=== PATIENT | female | born 1970 | race Caucasian/White ===

== ENCOUNTER 2016-09-22 10:36 | Outpatient (CLI) | payer BC ==
[~2016-09-22] VITALS: Ht 170.2 cm; Wt 116.2 kg
[~2016-09-22 10:36] MED LIST: AMLO5TAB2 PO; CYAN10006 PO; DULO60CA58 PO; GABA600T2 PO; GABA800T PO; HYDR-34 PO; HYDR-3714 PO; HYDR-3874 PO; LEVO500T2 PO; LEVO500T80 PO; LEVO50TA PO; LEVO50TA6 PO; LISI1TAB PO; LISI1TAB8 PO; LISI40TA PO; LVT.05T PO; MEDR150D4 INJ; MEDR150D6 INJ; METH750T3 PO; MULT1TAB69 PO; NAPR220C11 PO; NITR-68 PO; OXYC-197 PO; OXYC-272 PO; OXYC20TA14 PO; PANT40TA2 PO; POTA15TA PO; TAMS0.4C98 PO
--- OUTSIDE RECORDS SUMMARY | 2016-09-22 10:39 | XMS REPORT | Continuity of Care Document ---
Author Author [facility] Organization [facility] Address Unknown Phone Unavailable Care Team Providers Care Flag Car Driver Name Role Phone Juana Collier PCP [phone] Source Comments Some departments are not documenting in the electronic medical record. If you do not see the information that you expected, contact Release of Information in the Health Information Management department at [phone] for further assistance in locating additional records.[facility] Active Allergies and Adverse Reactions Not on File Current Medications Not on file Active Problems Not on file Social History Tobacco Use Types Packs/Day Years Used Date Never Assessed Plan of Care Health Maintenance Due Date Last Done Comments Physical (Comprehensive) 02/26/1979 Exam Pertussis Vaccine 02/26/1983 Tetanus Vaccine 02/26/1989 Cervical Cancer Screening 02/26/1993 Influenza Vaccine 03/23/2016 Results from Last 3 Months Not on file
[2016-09-22] MEDS ORDERED: BUPIVACAINE 0.25% 30 ML (SENSORCAINE) VIAL ONE (10:44)
[2016-09-22] MEDS ORDERED: TRIAMCINOLONE ACET (KENALOG-40) 40 MG/ML 1 ML VIAL ONE (10:44)
[2016-09-22 11:05] VITALS: BP 126/88
[2016-09-22 11:48] VITALS: BP 134/81
--- NOTE | 2016-09-22 14:53 | Pain Medicine-Procedure ---
Procedure Pre-Op/Post-Op Diagnosis Diagnosis: disc disorder with radiculopathy, lumbar Indications for Operation low back pain Attending Surgeon Harry Procedure Date of Service: Sep 22, 2016 PROCEDURE: Caudal Epidural Steroid Injection with catheter under Flouroscopic Guidance PROCEDURE NOTE: After obtaining written informed consent patient was taken to the procedure room. Vital signs were monitored through out the procedure. A time out was performed. The patient was placed in the prone position on fluoroscopy table. The lower back above the caudal space was prepped with chloraprep and draped in the usual sterile fashion. The skin over the sacral hiatus was identified under fluoroscopic guidance and infiltrated with 1% lidocaine for local anesthesia via 25 gauge needle. An 17-gauge epimed needle was used to access the epidural space under fluoroscopic guidance and was then advanced into the epidural space under fluoroscopic guidance in the AP view. The epimed catheter was then advanced under flourospopic guidance to the L5-S1 interspace. There was no paresthesia with catheter placement. After negative aspiration 1 cc of the contrast dye was injected through the needle with good spread of the medication in the epidural space at the appropriate levels. Again, after negative aspiration, 80 mg of kenalog with 2 cc of 0.25% marcaine and 2 mL's of preservative free normal saline was injected. There was no evidence of CSF, paresthesia or heme during the procedure. The catheter and needle were withdrawn as a unit and the tip was noted to be intact upon removal. Skin was cleaned and a sterile dressing was applied. Following the procedure the patient's vital signs were stable. The patient was discharged home after a brief period of observation with no new neuologic deficits. Complications none MILO BATISTA MD Sep 22, 2016 2:53 pm
== END 2016-09-22 11:49 | disposition home or self-care (01) ==
LOC: CARD 10:36
PROVIDERS: ATTEND Pain Medicine Pain Medicine
DX: M51.16 Intervertebral disc disorders with radiculopathy, lumbar region (principal); Z79.899 Other long term (current) drug therapy
CPT/HCPCS: 62323

== ENCOUNTER → 2016-10-04 | Outpatient (CLI) | payer BC ==
--- OUTSIDE RECORDS SUMMARY | 2016-10-04 15:40 | XMS REPORT | Continuity of Care Document ---
Author Author [facility] Organization [facility] Address Unknown Phone Unavailable Care Team Providers Care Plastic Fabricator Name Role Phone Juana Collier PCP [phone] Source Comments Some departments are not documenting in the electronic medical record. If you do not see the information that you expected, contact Release of Information in the Health Information Management department at [phone] for further assistance in locating additional records.[facility] Active Allergies and Adverse Reactions [...]
--- NOTE | 2016-10-04 18:04 | Diagnostic Imaging Report ---
AP and frog-leg lateral views of the left hip. INDICATION: Chronic left hip pain. FINDINGS: There is no significant joint space loss. Very minimal subchondral sclerotic changes are seen. No significant marginal osteophytes. No fracture or dislocation. No focal osseous lesion seen. Partially visualized fusion hardware involving the lower lumbar spine seen. IMPRESSION: Minimal left hip degenerative changes. Dictated by: Dictated on workstation # [id number]
== END ==
LOC: RAD 15:37
PROVIDERS: ATTEND Pain Medicine Pain Medicine
DX: M25.552 Pain in left hip (principal)
CPT/HCPCS: 73502

== ENCOUNTER → 2017-03-07 | Outpatient (CLI) | payer BC ==
--- NOTE | 2017-03-07 16:47 | Diagnostic Imaging Report ---
EXAMINATION: PA and lateral chest at 04:18 p.m. INDICATION: Respiratory distress. FINDINGS: The heart size is within normal limits and stable when compared to 05/21/2015. The perihilar markings are prominent but no different than on the prior exam. There is no sign of failure, pneumonia, or pleural effusion to suggest an acute abnormality. On the PA view, there is a small nodular density overlying the left upper lung. This was present on the prior exam of 05/21/2015 but not evident on the prior exam of 05/19/2015. This finding does seem similar to the prior exam. Consequently, I suspect it is more likely due to superimposition than to a parenchymal abnormality. Even so, I would recommend that an apical lordotic view be performed for further study. The mediastinum is not widened. The osseous structures are intact. IMPRESSION: 1. There is no evidence for an acute cardiopulmonary abnormality. 2. The small nodular density overlying the left upper lung is more likely due to superimposition than to a parenchymal abnormality. Recommendations as above. Dictated by: Dictated on workstation # [id number]
== END ==
LOC: RAD 15:54
PROVIDERS: ATTEND Family Medicine
DX: R05 Cough (principal)
CPT/HCPCS: 71020

== ENCOUNTER → 2017-03-14 | Outpatient (CLI) | payer BC ==
--- NOTE | 2017-03-14 17:03 | Diagnostic Imaging Report ---
INDICATION: Cough. Apical lordotic view of the chest obtained and compared to 03/07/17. FINDINGS: Heart and mediastinal silhouette are normal in appearance. The lungs are clear. Density overlying the left apex on the previous study is resolved on the lordotic projection, this is probably a bony artifact therefore. IMPRESSION: Negative apical lordotic chest. Dictated by: Dictated on workstation # [id number]
== END ==
LOC: RAD 15:56
PROVIDERS: ATTEND Family Medicine
DX: R05 Cough (principal)
CPT/HCPCS: 71010

== ENCOUNTER → 2017-03-14 | Outpatient (CLI) | payer BC | LOC: LAB 15:51 | PROVIDERS: ATTEND Psychiatry & Neurology Neurology | DX: R25.2 Cramp and spasm (principal) | CPT/HCPCS: 36415 ==

== ENCOUNTER → 2017-03-21 | Outpatient (CLI) | payer BC ==
[2017-03-09 07:20] LABS: BASOPHILS % (AUTO) 0 % (0-10); EOSINOPHILS # (AUTO) 0.2 10^3/uL (0.0-0.3); EOSINOPHILS % (AUTO) 2 % (0-10); LYMPHOCYTES # (AUTO) 2.1 X 10^3 (1.0-4.0); LYMPHOCYTES % (AUTO) 26 % (12-44); MEAN CORPUSCULAR HEMOGLOBIN 30 PG (25-34); MEAN CORPUSCULAR HGB CONC 32 G/DL (32-36); MEAN CORPUSCULAR VOLUME 94 FL (80-99); MEAN PLATELET VOLUME 9.6 FL (7.4-10.4); MONOCYTES # (AUTO) 0.6 X 10^3 (0.0-1.0); MONOCYTES % (AUTO) 7 % (0-12); NEUTROPHILS # (AUTO) 5.2 X 10^3 (1.8-7.8); NEUTROPHILS % (AUTO) 64 % (42-75); PLATELET COUNT 241 10^3/uL (130-400)
[2017-03-09 07:42] LABS: ALANINE AMINOTRANSFERASE 68 U/L (0-55); ALBUMIN 4.3 GM/DL (3.2-4.5); ANION GAP 13 MMOL/L (5-14); ASPARTATE AMINO TRANSFERASE 85 U/L (5-34); BILIRUBIN,TOTAL 0.5 MG/DL (0.1-1.0); BLOOD UREA NITROGEN 15 MG/DL (7-18); BUN/CREATININE RATIO 22; CALCIUM 9.6 MG/DL (8.5-10.1); CARBON DIOXIDE 20 MMOL/L (21-32); CHLORIDE 105 MMOL/L (98-107); CREATINE KINASE 274 U/L (29-168); CREATININE SERUM 0.69 MG/DL (0.60-1.30); GFR ESTIMATED > 60; GLUCOSE 141 MG/DL (70-105); POTASSIUM 4.2 MMOL/L (3.6-5.0); SODIUM 138 MMOL/L (135-145); TOTAL PROTEIN 7.5 GM/DL (6.4-8.2)
[2017-03-09 08:05] LABS: THYROID STIMULATING HORMONE 1.55 UIU/ML (0.35-4.94)
== END ==
LOC: LAB 03-09 06:39
PROVIDERS: ATTEND Psychiatry & Neurology Neurology
DX: R25.2 Cramp and spasm (principal)
CPT/HCPCS: 36415; 80053; 82085; 82306; 82550; 82607; 83605; 84439; 84443; 85025

== ENCOUNTER → 2017-06-25 | Outpatient (CLI) | payer BC ==
--- NOTE | 2017-06-26 10:30 | Diagnostic Imaging Report ---
Bilateral screening mammogram 2D views with tomosynthesis The current study was also evaluated with a Computer Aided Detection (CAD) system. Indication: Screening. No current complaints stated on the questionnaire. COMPARISON: 06/09/2016 FINDINGS: The breasts are composed of scattered fibroglandular densities. Occasional benign-appearing calcifications are seen. Allowing for technique and positional differences, no suspicious change is seen. IMPRESSION: No significant change. ACR BI-RADS Category 2: Benign findings. Result letter will be mailed to the patient. Note: At least 10% of breast cancer is not imaged by mammography. Dictated by: Dictated on workstation # [id number]
== END ==
LOC: RAD 15:05
PROVIDERS: ATTEND Obstetrics & Gynecology
DX: Z12.31 Encounter for screening mammogram for malignant neoplasm of breast (principal)
CPT/HCPCS: 77067

== ENCOUNTER → 2019-06-05 | Outpatient (CLI) | payer BC ==
[~2019-06-05] MED LIST changes: -AMLO5TAB2 PO; +AMLO5TAB9 PO; +CYAN-41 PO; -CYAN10006 PO; +GBPN600T PO; +HYDR-3870 PO; -HYDR-3874 PO; -OXYC-197 PO; +OXYC1TAB87 PO
--- NOTE | 2019-06-05 09:50 | Diagnostic Imaging Report ---
PROCEDURE: MRI right joint upper extremity without contrast. TECHNIQUE: Multiplanar, multisequence non contrast-enhanced MRI of the right upper extremity was accomplished. INDICATION: Arm pain, ulnar nerve lesion. COMPARISON: There are no prior studies available for comparison. FINDINGS: The STIR coronal series and the T2 axial fat-saturated series do show increased signal in the soft tissues adjacent to the medial epicondyle of the distal humerus. This abnormal signal does suggest edema/inflammation. This abnormal signal is in the region of the attachment of the common flexor tendon to the medial epicondyle and there may be slight separation of the common flexor tendon fibers from the bone in this region (coronal STIR series image 8 of 21, axial T2 fat-saturated series image 12 of 21). The area of abnormal signal is also along the path of the ulnar nerve. The ulnar nerve itself was visualized and shows no obvious abnormality. However, there may be inflammation of the ulnar nerve due to the adjacent soft tissue reaction. The other major ligaments and tendons of the elbow joint are intact. The insertion of the biceps tendon into the radial tuberosity however is not visualized in its entirety. There is no abnormal signal arising from the osseous structures to suggest bone edema or fracture. There is no sign of joint effusion. IMPRESSION: 1. There is edema/inflammation of the soft tissues about the medial epicondyle of the distal humerus. There also appears to be a slight separation of the common flexor tendon from the medial epicondyle. The ulnar nerve is in the region of the edema/inflammation and may be indirectly affected. The nerve itself where visualized shows no definite abnormality. 2. The other major ligaments and tendons are intact. 3. There is no sign of an acute bony abnormality. Dictated by: Dictated on workstation # [id number]
== END ==
LOC: RAD 07:39
PROVIDERS: ATTEND Nurse Practitioner
DX: G56.21 Lesion of ulnar nerve, right upper limb (principal); M77.12 Lateral epicondylitis, left elbow
CPT/HCPCS: 73221

== ENCOUNTER → 2019-06-16 | Outpatient (CLI) | payer BC ==
--- NOTE | 2019-06-17 10:01 | Diagnostic Imaging Report ---
Digital mammogram. Bilateral screening. The study was compared to the prior exams of 06/25/2017 and 05/30/2016. At this time there are no current complaints. The fibroglandular tissue in both breasts is heterogeneously dense. This does limit the sensitivity of this exam. When compared to the prior studies, there does not appear to have been any significant change. There is no primary or secondary sign of malignancy noted. However on the MLO views of each breast, there are small radiopaque densities overlying each axilla. This is particularly true of the right axilla. I suspect that these findings are related to deodorant artifact. The patient did return for additional MLO views. These are of better quality. IMPRESSION: There is no evidence for malignancy. ACR BI-RADS Category 1: Negative. Result letter will be mailed to the patient. Note: At least 10% of breast cancer is not imaged by mammography. Dictated by: Dictated on workstation # [id number]
== END ==
LOC: RAD 08:13
PROVIDERS: ATTEND Obstetrics & Gynecology
DX: Z12.31 Encounter for screening mammogram for malignant neoplasm of breast (principal)
CPT/HCPCS: 77067

== ENCOUNTER → 2020-01-28 | Outpatient (CLI) | payer BC ==
[~2020-01-28] MED LIST changes: +LISI1TAB25 PO; +MULT-567 PO; -MULT1TAB69 PO; -TAMS0.4C98 PO; +TMSL.4C PO
== END ==
LOC: LABNPT 07:04
PROVIDERS: ATTEND Family Medicine
DX: M79.10 Myalgia, unspecified site (principal); R51 Headache; R05 Cough; Z20.828 Contact with and (suspected) exposure to other viral communicable diseases
CPT/HCPCS: 87635

== ENCOUNTER → 2020-07-22 | Outpatient (CLI) | payer BC ==
[~2020-07-22] MED LIST changes: +ACET-2267 PO; +ALBU18HF2 INH; +AMLO-250 PO; +AMLO2.5T4 PO; -AMLO5TAB9 PO; +ARIP5TAB57 PO; +AZIT250T12 PO; +BUPR150T7 PO; +DAPA5TAB PO; +ESTR2TAB PO; +GABA300C PO; -LISI1TAB25 PO; +LISI1TAB46 PO; +METF-399 PO; +METH4TAB10 PO
--- NOTE | 2020-07-22 17:28 | NUR ---
Notified of positive COVID test.
== END ==
LOC: LABNPT 05:15
PROVIDERS: ATTEND Family Medicine
DX: U07.1 COVID-19 (principal)
CPT/HCPCS: 87804; U0002; 87635

== ENCOUNTER 2020-07-23 23:55 | Inpatient (IN) | payer BC ==
[~2020-07-23] VITALS: Ht 167.7 cm; Wt 109.5 kg
[~2020-07-23 23:55] MED LIST changes: -ACET-2267 PO; -ALBU18HF2 INH; -AMLO2.5T4 PO; -ARIP5TAB57 PO; -AZIT250T12 PO; -BUPR150T7 PO; -DAPA5TAB PO; -ESTR2TAB PO; -GABA300C PO; -METF-399 PO; -METH4TAB10 PO
[2020-07-24] MEDS: dexAMETHasone 6 MG TAB (DECADRON) ONE ×2 (00:18→00:30)
[2020-07-24] MEDS: LACTATED RINGERS 1,000 ML IV ONE ×2 (00:18→00:41)
[2020-07-24] MEDS: RT-ALBUTEROL INHALER HFA (VENTOLIN HFA) 18 GM IH ONE ×2 (00:30→00:41)
[2020-07-24] MEDS ORDERED: RT-ALBUTEROL INHALER HFA (VENTOLIN HFA) 18 GM IH PRN (00:30)
[2020-07-24] MEDS ORDERED: RT-ALBUTEROL INHALER HFA (VENTOLIN HFA) 18 GM IH STA (00:33)
[2020-07-24] MEDS ORDERED: LACTATED RINGERS 1,000 ML IV STA (00:33)
[2020-07-24 00:41] LABS: MEAN PLATELET VOLUME 11.1 fL (9.0-12.2); NEUTROPHILS # (AUTO) 5.8 10^3/uL (1.8-7.8)
[2020-07-24 00:43] LABS: BASOPHILS % (AUTO) 0 % (0-10); EOSINOPHILS % (AUTO) 0 % (0-10); HEMATOCRIT 39 % (35-52); HEMOGLOBIN 12.1 g/dL (11.5-16.0); LYMPHOCYTES % (AUTO) 14 % (12-44); MEAN CORPUSCULAR HEMOGLOBIN 26 pg (25-34); MEAN CORPUSCULAR HGB CONC 31 g/dL (32-36); MEAN CORPUSCULAR VOLUME 84 fL (80-99); MONOCYTES # (AUTO) 0.4 10^3/uL (0.0-1.0); MONOCYTES % (AUTO) 6 % (0-12); NEUTROPHILS % (AUTO) 79 % (42-75); PLATELET COUNT 82 10^3/uL (130-400); WHITE BLOOD COUNT 7.3 10^3/uL (4.3-11.0)
[2020-07-24] MEDS ORDERED: dexAMETHasone 6 MG TAB (DECADRON) PO SCH (00:45)
[2020-07-24] MEDS ORDERED: LACTATED RINGERS 1,000 ML IV ONE ×2 (01:00→03:14)
--- NOTE | 2020-07-24 01:13 | ED General ---
General Chief Complaint: Respiratory Problems Stated Complaint: COVID+,COUGH,SOB,LOW O2 Nursing Triage Note: TESTED POSITIVE FOR COVID 19 YESTERDAY 07/22/20, TONIGHT SHE C/O INCREASED SHORTNESS OF BREATH WITH INTERMITTENT CHEST DISCOMFORT. Nursing Sepsis Screen: Possible Sepsis Risk Source of Information: Patient Exam Limitations: No Limitations History of Present Illness Date Seen by Provider: Jul 24, 2020 Time Seen by Provider: 00:08 Initial Comments Here with complaint of shortness of breath and chest tightness. Tested positive for COVID-19 on 07/22/2020 here in the emergency department. Her daughter is also positive. She believes onset of symptoms was on 07/16/2020. Does have history of diabetes and hypertension that are both usually controlled. Also has hypothyroidism. She has been doing albuterol inhaler at home and that has helped only a little. Her primary care physician started her on steroids and azithromycin but unsure of dosing of steroids. Last dose was what would be yesterday morning. Denies nausea or vomiting. Admits that she may be a little dehydrated. Reports blood sugars in the 140s or 150s. Arrives tachycardic and O2 sat at 88% on room air. Timing/Duration: 1 Week, Getting Worse Severity: Moderate Associated Systoms: Chest Pain (Tightness), Cough, Fever/Chills; No Nausea/Vomiting; Shortness of Air; No Weakness Allergies and Home Medications Allergies Coded Allergies: codeine (Verified Adverse Reaction, Unknown, NAUSEA & VOMITING., 05/11/16) Home Medications Amlodipine Besylate 5 Mg Tablet, 5 MG PO HS, (Reported) Gabapentin 600 Mg Tablet, 600 MG PO BID, (Reported) Hydrocodone/Acetaminophen 1 Each Tablet, 1-2 TAB PO Q4H PRN for PAIN Prescribed by: BRITT RAMOS on 05/16/16 1058 Levothyroxine Sodium 50 Mcg Tablet, 50 MCG PO DAILY, (Reported) Lisinopril 40 Mg Tablet, 40 MG PO DAILY, (Reported) Medroxyprogesterone Acetate 150 Mg/1 Ml Syringe, INJ EVERY 3 MONTHS, (Reported) Nitrofurantoin Macrocrystal 100 Mg Capsule, 100 MG PO BID Prescribed by: BRITT RAMOS on 05/16/16 1058 Pantoprazole Sodium 40 Mg Tablet.dr, 40 MG PO DAILY Prescribed by: MERISSA VILLAGOMEZ on 07/05/15 1309 Potassium Citrate 15 Meq Tablet.er, 15 MEQ PO BID, (Reported) Tamsulosin HCl 0.4 Mg Cap, 0.4 MG PO DAILY Prescribed by: BRITT RAMOS on 05/16/16 1058 Patient Home Medication List Home Medication List Reviewed: Yes Review of Systems Review of Systems Constitutional: see HPI EENTM: nose congestion; No throat pain Respiratory: cough, short of breath Cardiovascular: see HPI; No edema Gastrointestinal: No nausea, No vomiting Genitourinary: No dysuria, No pain Musculoskeletal: muscle pain; No muscle weakness Skin: no symptoms reported All Other Systems Reviewed Negative Unless Noted: Yes Past Wqthcxn-Spvfzz-Akzckb Hx Past Med/Social Hx: Reviewed Nursing Past Med/Soc Hx Patient Social History Alcohol Use: Denies Use Recreational Drug Use: No Recent Foreign Travel: No Contact w/Someone Who Travel: No Recent Hopitalizations: No Physical Abuse: No Sexual Abuse: No Mistreated: No Fear: No Immunizations Up To Date Tetanus Booster (TDap): More than 5yrs PED Vaccines UTD: Yes Date of Pneumonia Vaccine: May 06, 2015 Date of Influenza Vaccine: May 05, 2015 Seasonal Allergies Seasonal Allergies: No Past Medical History Surgeries: Yes (rectal vag FISTULA x3, bilateral knee scopes, carpal tunnel, back sx x2, ) Section, Gallbladder, Orthopedic, Rectal Respiratory: No Pneumonia Currently Using CPAP: No Currently Using BIPAP: No Cardiac: Yes Hypertension Neurological: No : No (DEPO SHOT) Reproductive Disorders: No Sexually Transmitted Disease: No HIV/AIDS: No Kidney Stones Gastrointestinal: Yes (RECTAL-VAGINAL FISTULA REPAIR X3) Gastroesophageal Reflux Musculoskeletal: Yes Degenerate Disk Disease, Chronic Back Pain Endocrine: Yes Hypothyroidsim, Diabetes, Non-Insulin dep HEENT: No Loss of Vision: Denies Hearing Impairment: Denies Cancer: No Psychosocial: No Integumentary: No Blood Disorders: No Adverse Reaction/Blood Tranf: No (N/A) Family Medical History Reviewed Nursing Family Hx Diabetes mellitus 19 FATHER (COPD) G8 BROTHER Myocardial infarction G8 SISTER, Onset:40's - 50 No Pertinent Family Hx Physical Exam-Suspected Sepsis Physical Exam Vital Signs Vital Signs - First Documented 07/24/20 07/24/20 00:10 00:11 Temp 36.4 Pulse 119 Resp 22 B/P (MAP) 173/88 (116) Pulse Ox 93 O2 Delivery Nasal Cannula O2 Flow Rate 2.00 Capillary Refill : Less Than 3 Seconds Blood Pressure Mean: 116 Height, Weight, BMI Height: 5'7.00" Weight: 256lbs. 4.0oz. [id number]; 40.00 BMI Method: General Appearance: WD/WN, Moderate Distress, Obese HEENT: PERRL/EOMI, Pharyngeal Erythema Neck: Non Tender, Supple Respiratory: No Accessory Muscle Use, Other (Coarse cough with deep breathing) Cardiovascular: No Murmur, Tachycardia Gastrointestinal: Non Tender, Soft Back: Normal Inspection, No CVA Tenderness, No Vertebral Tenderness Extremity: Normal Range of Motion, Non Tender Neurologic/Psychiatric: Alert, Oriented x3 Skin: normal color, warm/dry Focused Exam Lactate Level 07/24/20 00:30: Lactic Acid Level 3.76*H Lactic Acid Level Laboratory Tests Test 07/24/20 00:30 Lactic Acid Level 3.76 MMOL/L (0.50-2.00) *H Progress/Results/Core Measures Suspected Sepsis Recent Fever Within 48 Hours: Yes Infection Criteria Present: Documented Infection New/Unexplained Altered Menta: No Sepsis Screen: Possible Sepsis Risk SIRS Temperature: Pulse: 119 Respiratory Rate: 22 Laboratory Tests 07/24/20 00:30: White Blood Count 7.3 Blood Pressure 173 /88 Mean: 116 07/24/20 00:30: Lactic Acid Level 3.76*H Laboratory Tests 07/24/20 00:30: Platelet Count 82L 07/24/20 01:00: Creatinine 0.76, INR Comment 1.1, Total Bilirubin 0.4 Results/Orders Lab Results Laboratory Tests Test 07/24/20 00:30 07/24/20 01:00 07/24/20 01:35 Range/Units White Blood Count 7.3 4.3-11.0 10^3/uL Red Blood Count 4.68 3.80-5.11 10^6/uL Hemoglobin 12.1 11.5-16.0 g/dL Hematocrit 39 35-52 % Mean Corpuscular Volume 84 80-99 fL Mean Corpuscular Hemoglobin 26 25-34 pg Mean Corpuscular Hemoglobin Concent 31 L 32-36 g/dL Red Cell Distribution Width 16.0 H 10.0-14.5 % Platelet Count 82 L 130-400 10^3/uL Mean Platelet Volume 11.1 9.0-12.2 fL Immature Granulocyte % (Auto) 1 % Neutrophils (%) (Auto) 79 H 42-75 % Lymphocytes (%) (Auto) 14 12-44 % Monocytes (%) (Auto) 6 0-12 % Eosinophils (%) (Auto) 0 0-10 % Basophils (%) (Auto) 0 0-10 % Neutrophils # (Auto) 5.8 1.8-7.8 10^3/uL Lymphocytes # (Auto) 1.0 1.0-4.0 10^3/uL Monocytes # (Auto) 0.4 0.0-1.0 10^3/uL Eosinophils # (Auto) 0.0 0.0-0.3 10^3/uL Basophils # (Auto) 0.0 0.0-0.1 10^3/uL Immature Granulocyte # (Auto) 0.1 0.0-0.1 10^3/uL Lactic Acid Level 3.76 *H 0.50-2.00 MMOL/L Prothrombin Time 14.8 H 12.2-14.7 SEC INR Comment 1.1 0.8-1.4 Activated Partial Thromboplast Time 34 24-35 SEC D-Dimer 0.21 0.00-0.49 UG/ML Sodium Level 135 135-145 MMOL/L Potassium Level 4.1 3.6-5.0 MMOL/L Chloride Level 103 98-107 MMOL/L Carbon Dioxide Level 16 L 21-32 MMOL/L Anion Gap 16 H 5-14 MMOL/L Blood Urea Nitrogen 11 7-18 MG/DL Creatinine 0.76 0.60-1.30 MG/DL Estimat Glomerular Filtration Rate > 60 BUN/Creatinine Ratio 14 Glucose Level 159 H 70-105 MG/DL Calcium Level 9.3 8.5-10.1 MG/DL Corrected Calcium 9.2 8.5-10.1 MG/DL Total Bilirubin 0.4 0.1-1.0 MG/DL Aspartate Amino Transf (AST/SGOT) 39 H 5-34 U/L Alanine Aminotransferase (ALT/SGPT) 42 0-55 U/L Alkaline Phosphatase 69 40-136 U/L C-Reactive Protein High Sensitivity 2.21 H 0.00-0.50 MG/DL Total Protein 7.7 6.4-8.2 GM/DL Albumin 4.1 3.2-4.5 GM/DL Procalcitonin 0.06 <0.10 NG/ML Urine Color YELLOW Urine Clarity CLEAR Urine pH 6.0 5-9 Urine Specific [place] >=1.030 1.016-1.022 Urine Protein 2+ H NEGATIVE Urine Glucose (UA) 2+ H NEGATIVE Urine Ketones 1+ H NEGATIVE Urine Nitrite NEGATIVE NEGATIVE Urine Bilirubin NEGATIVE NEGATIVE Urine Urobilinogen 0.2 < = 1.0 MG/DL Urine Leukocyte Esterase NEGATIVE NEGATIVE Urine RBC (Auto) TRACE-I NEGATIVE Urine RBC 10-25 H /HPF Urine WBC 5-10 H /HPF Urine Squamous Epithelial Cells 5-10 /HPF Urine Crystals NONE /LPF Urine Bacteria LARGE H /HPF Urine Casts NONE /LPF Urine Mucus NEGATIVE /LPF Urine Culture Indicated CULTURE PENDING My Orders Orders - SRINIVASA RANGEL MD Lactated Ringers (Lr 1000 Ml Iv Solution (07/24/20 00:13) Dexamethasone Tablet (Decadron Tablet) (07/24/20 00:13) Albuterol Inhaler (Ventolin Hfa) (07/24/20 00:25) Cbc With Automated Diff (07/24/20 00:33) Comprehensive Metabolic Panel (07/24/20 00:33) Blood Culture (07/24/20 00:33) Sputum Culture (07/24/20 00:33) Urinalysis (07/24/20 00:33) Urine Culture (07/24/20 00:33) Protime With Inr (07/24/20 00:33) Partial Thromboplastin Time (07/24/20 00:33) Chest 1 View, Ap/Pa Only (07/24/20 00:33) Ed Iv/Invasive Line Start (07/24/20 00:33) Vital Signs Adult Sepsis Patie Q15M (07/24/20 00:33) O2 (07/24/20 00:33) Remove Rings In Anticipation O (07/24/20 00:33) Lactic Acid Analyzer (07/24/20 00:33) Fibrin Degradation Products (07/24/20 00:33) Procalcitonin (Pct) (07/24/20 00:33) Hs C Reactive Protein (07/24/20 00:33) Dexamethasone Tablet (Decadron Tablet) (07/24/20 00:45) Albuterol Inhaler (Ventolin Hfa) (07/24/20 00:33) Lactated Ringers (Lr 1000 Ml Iv Solution (07/24/20 00:33) Lactated Ringers (Lr 1000 Ml Iv Solution (07/24/20 01:00) Convalescent Plasma (07/24/20 02:08) Abo Rh Type (07/24/20 02:08) Medications Given in ED Current Medications Medications Dose Ordered Sig/Vickie Route Start Time Stop Time Status Last Admin Dose Admin Lactated Ringer's 1,000 ml @ 0 mls/hr Q0M ONCE IV 07/24/20 01:00 07/24/20 01:01 DC 07/24/20 01:27 1,000 MLS/HR Vital Signs/I&O 07/24/20 07/24/20 00:10 00:11 Temp 36.4 Pulse 119 Resp 22 B/P (MAP) 173/88 (116) Pulse Ox 93 93 O2 Delivery Nasal Cannula Nasal Cannula O2 Flow Rate 2.00 Capillary Refill : Less Than 3 Seconds Blood Pressure Mean: 116 Progress Note : Progress Note Seen and evaluated. IV, labs, blood cultures and lactic acid ordered. Decadron 6 mg p.o. LR 1 L bolus. Albuterol MDI 4 puffs via spacer ordered. O2 applied at 2 L with O2 sat at 95%. Monitor patient. 0100: Repeat LR 1 L bolus for la ctic acid elevation but less than 4. Patient has active Covid infection. Monitor patient. 0211: X-ray is notable for bilateral lateral pneumonia findings consistent with COVID-19 infection. Procalcitonin is low indicating viral infection not bacterial. We will continue supportive care. I did discuss with the patient regarding convalescent plasma and emergency use authorization. Risk and benefits discussed patient agrees to administration. I did discuss the case with Dr. Dewitt and she accepts patient for admission, inpatient status. We will continue Decadron. Patient agrees with plan. Diagnostic Imaging Diagonstic Imaging: Xray Plain Films/CT/US/NM/MRI: chest Comments Bilateral lateral infiltrates consistent with COVID-19 infection. Departure Communication (Admissions) Time/Spoke to Admitting Phy: 02:11 Impression Primary Impression: Pneumonia due to COVID-19 virus Additional Impression: Lactic acidosis Disposition: 09 ADMITTED INPATIENT Condition: Stable Admissions Decision to Admit Reason: Admit from ER (General) Decision to Admit/Date: Jul 24, 2020 Time/Decision to Admit Time: 02:11 Departure-Patient Inst. Referrals: ALY LYLE DO (PCP/Family) Primary Care Physician SRINIVASA RANGEL MD Jul 24, 2020 01:12
[2020-07-24 01:27] LABS: ALBUMIN 4.1 GM/DL (3.2-4.5); CHLORIDE 103 MMOL/L (98-107); POTASSIUM 4.1 MMOL/L (3.6-5.0); SODIUM 135 MMOL/L (135-145)
[2020-07-24 01:28] LABS: CALCIUM 9.3 MG/DL (8.5-10.1)
[2020-07-24 01:29] LABS: GLUCOSE 159 MG/DL (70-105)
[2020-07-24 01:30] LABS: TOTAL PROTEIN 7.7 GM/DL (6.4-8.2)
[2020-07-24 01:31] LABS: BILIRUBIN,TOTAL 0.4 MG/DL (0.1-1.0); CARBON DIOXIDE 16 MMOL/L (21-32)
[2020-07-24 01:33] LABS: ALKALINE PHOSPHATASE 69 U/L (40-136); CREATININE SERUM 0.76 MG/DL (0.60-1.30); GFR ESTIMATED > 60
[2020-07-24 01:34] LABS: BUN/CREATININE RATIO 14
[2020-07-24 01:36] LABS: ALANINE AMINOTRANSFERASE 42 U/L (0-55)
[2020-07-24 01:59] LABS: BILIRUBIN,URINE NEGATIVE (NEGATIVE); CLARITY,URINE CLEAR; COLOR,URINE YELLOW; GLUCOSE, URINE (UA) 2+ (NEGATIVE); KETONES,URINE 1+ (NEGATIVE); LEUKOCYTE ESTERASE ,URINE NEGATIVE (NEGATIVE); NITRITE,URINE NEGATIVE (NEGATIVE); PROTEIN,URINE 2+ (NEGATIVE)
[2020-07-24 02:02] LABS: FIBRIN DEGRADATION PRODUCTS 0.21 UG/ML (0.00-0.49); INR 1.1 (0.8-1.4); PROTHROMBIN TIME PATIENT 14.8 SEC (12.2-14.7)
[2020-07-24 02:03] LABS: BACTERIA,URINE LARGE /HPF
--- NOTE | 2020-07-24 03:25 | NUR ---
AMINATA PETERSERIK admitted to room 507-1, with an admitting diagnosis of COVID +, PNEUMONIA , on 07/24/20 from ED via WHEELCHAIR, accompanied by HOSPITAL STAFF. AMINATA HINDS introduced to surroundings, call light, bed controls, phone, TV, temperature control, lights, meal times, smoking policy, visitor policy, side rail policy, bathrooms and showers. Patient Rights given to patient in the handbook.AMINATA HINDS verbalizes understanding that [facility] is not responsible for the loss or damage to any personal effects or valuables that are kept in the patients posession during their hospitalization. AMINATA HINDS verbalizes understanding of Interdisciplinary Patient Education. Patient and/or family were informed about the Rapid Response Team and its purpose.
[2020-07-24] MEDS ORDERED: ONDANSETRON 4 MG/2 ML (SDV) Z0FRAN IVP PRN (03:30)
[2020-07-24 03:54] VITALS: BP 173/88
[2020-07-24] MEDS: LACTATED RINGERS 1,000 ML IV SCH ×3 (04:14→19:55)
[2020-07-24] MEDS: dexAMETHasone 6 MG TAB (DECADRON) PO SCH (06:11)
[2020-07-24] MEDS: inSUlin ASPART (NovoLOG) 1 UNIT/0.01 ML (CHARGE PER UNIT) SC SCH ×4 (06:19→21:17)
[2020-07-24] MEDS ORDERED: FLU QUADRIvalent (3YOA+) 60 mcg/0.5 ml 2020-21 (AFLURIA) IM ONE (06:45)
--- NOTE | 2020-07-24 06:56 | Diagnostic Imaging Report ---
INDICATION: COVID positive, shortness of air, cough and congestion, sepsis. TECHNIQUE: Single view chest 1:52 AM. CORRELATION STUDY: 03/14/2017 FINDINGS: Bilateral pulmonary parenchymal opacities have developed most pronounced in the left lung base and right upper lobe in the perihilar region. Heart size generally stable. Vasculature appears slightly more prominent. IMPRESSION: 1. Bilateral pulmonary opacities have developed favoring probable areas of infiltrate. Most pronounced left lung base as well as central right mid lung. 2. Heart size stable with vasculature slightly more prominent from prior. Follow-up is recommended. Dictated by: Dictated on workstation # [id number]
[2020-07-24] MEDS: RT-ALBUTEROL INHALER HFA (VENTOLIN HFA) 18 GM IH SCH ×2 (07:07→18:44)
--- NOTE | 2020-07-24 08:53 | History & Physical-Hospitalist ---
History of Present Illness HPI/Chief Complaint Pt is a 50yoCF with a PMH HTN, NIDDMII, and hypothyroidism who presented to the ER due to SOB. She states she became symptomatic with COVID on 07/16 and her daughter has it as well. She tested positive on 07/22. She was monitoring her oxygen and even at rest it was around 90 and she was short of breath prompting her to seek evaluation. Her stats where in the 80s when she showed up at the ER. She reports she has also had loss of taste and smell. She was started on steroids and azithromycin by her PCP. She denies any nausea, vomiting, or denies. She does complains of fever, myalgias, and fatigue. Source: patient Date Seen 07/24/20 Time Seen by a Provider: 08:53 Attending Physician Niecy Mercer MD PCP Aly Collier DO Referring Physician Date of Admission Jul 24, 2020 at 02:15 Home Medications & Allergies Home Medications Reviewed patient Home Medication Reconciliation performed by pharmacy medication reconciliations weatherization field technician and/or nursing. Patients Allergies have been reviewed. Allergies Allergies Coded Allergies codeine (Verified Adverse Reaction, Unknown, NAUSEA & VOMITING., 05/11/16) Past Pplavxk-Dvjgkt-Cglvxb Hx Past Med/Social Hx: Reviewed Nursing Past Med/Soc Hx Patient Social History Marrital Status: Alcohol Use: Denies Use Recreational Drug Use: No Recent Foreign Travel: No Contact w/other who traveled: No Recent Hopitalizations: No Immunizations Up To Date Tetanus Booster (TDap): More than 5yrs Pediatric: Yes Date of Pneumonia Vaccine: May 06, 2015 Date of Influenza Vaccine: May 05, 2015 Seasonal Allergies Seasonal Allergies: No Past Medical History Surgeries: Section, Gallbladder, Orthopedic, Rectal Currently Using CPAP: No Currently Using BIPAP: No Cardiac: Hypertension : No (DEPO SHOT) Reproductive: No Sexually Transmitted Disease: No HIV/AIDS: No Genitourinary: Kidney Stones Gastrointestinal: Gastroesophageal Reflux Musculoskeletal: Degenerate Disk Disease, Chronic Back Pain Endocrine: Hypothyroidsim, Diabetes, Non-Insulin dep Loss of Vision: Denies Hearing Impairment: Denies History of Blood Disorders: No Adverse Reaction to Blood Rand: No (N/A) Family History Reviewed Nursing Family Hx Diabetes mellitus 19 FATHER (COPD) G8 BROTHER Myocardial infarction G8 SISTER, Onset:40's - 50 No Pertinent Family Hx Review of Systems Constitutional: fever, malaise, weakness EENTM: see HPI Respiratory: cough, dyspnea on exertion, short of breath Cardiovascular: No chest pain, No edema, No palpitations Gastrointestinal: No abdominal pain, No diarrhea, No nausea, No vomiting Genitourinary: no symptoms reported Musculoskeletal: see HPI Skin: no symptoms reported Psychiatric/Neurological: No Symptoms Reported Physical Exam Physical Exam Vital Signs Vital Signs - First Documented 07/24/20 07/24/20 00:10 00:11 Temp 36.4 Pulse 119 Resp 22 B/P (MAP) 173/88 (116) Pulse Ox 93 O2 Delivery Nasal Cannula O2 Flow Rate 2.00 Capillary Refill : Less Than 3 Seconds Height, Weight, BMI Height: 5'7.00" Weight: 256lbs. 4.0oz. 116.393570qm; 39.86 BMI Method: General Appearance: No Apparent Distress, Obese HEENT: PERRL/EOMI, Moist Mucous Membranes Neck: Normal Inspection, Supple Respiratory: Lungs Clear, No Accessory Muscle Use; No Crackles, No Rhonci, No Wheezing; Other (on 3lpm ) Cardiovascular: Regular Rate, Rhythm, No Murmur Gastrointestinal: Normal Bowel Sounds, Non Tender, Soft Extremity: Normal Capillary Refill, No Calf Tenderness, No Pedal Edema Neurologic/Psychiatric: Alert, Oriented x3, Normal Mood/Affect Skin: Normal Color, Warm/Dry Results Results/Procedures Labs Laboratory Tests 07/24/20 00:30 07/24/20 01:00 Patient resulted labs reviewed. Imaging: Reviewed Imaging Report Imaging [facility], [place] NAME: AMINATA [facility]INDS [facility] REC#: [id number] PT STATUS: ADM IN : 1970 PHYSICIAN: SRINIVASA RANGEL MD ADMIT DATE: 07/24/20/[facility] Signed Date of Exam:07/24/20 CHEST 1 VIEW, AP/PA ONLY INDICATION: COVID positive, shortness of air, cough and congestion, sepsis. TECHNIQUE: Single view chest 1:52 AM. CORRELATION STUDY: 03/14/2017 FINDINGS: Bilateral pulmonary parenchymal opacities have developed most pronounced in the left lung base and right upper lobe in the perihilar region. Heart size generally stable. Vasculature appears slightly more prominent. IMPRESSION: 1. Bilateral pulmonary opacities have developed favoring probable areas of infiltrate. Most pronounced left lung base as well as central right mid lung. 2. Heart size stable with vasculature slightly more prominent from prior. Follow-up is recommended. Dictated by: Dictated on workstation # [id number] Dict: [id number]/24/20630 Trans: 07/24/2031 ITA [id number] Interpreted by: GERMAN RUGGIERO DO Electronically signed by: GERMAN RUGGIERO DO 07/24/2031 Assessment/Plan Admission Diagnosis Acute hypoxic respiratory failure due to COVID19 Admission Status: Inpatient Order (span 2 midnights) Reason for Inpatient Admission: see below Assessment and Plan Acute hypoxic respiratory failure due to COVID19 Start remdesivir, continue decadron Consent to convalescent plasma done in ER, awaiting arrival Wean oxygen to keep sats >90 MAT protocol Lovenox IS Lactic acidosis Does not have sepsis Likely multifactorial from tachycardia, hypoxia, and metformin use at home Continue IVF, increase to 100ml/hr Thrombocytopenia New onset INR and D-dimer Will add fibrinogen to complete DIC panel Consider hematology consult if persists HTN BP well controlled, trend Resume home meds when able NIDDMII On metformin at home SSI here Hold metformin for lactic acidosis DVT ppx: Lovenox Diagnosis/Problems Diagnosis/Problems (1) Hypertension Status: Chronic Qualifiers: Hypertension type: essential hypertension Qualified Codes: I10 - Essential (primary) hypertension (2) Non-insulin dependent type 2 diabetes mellitus Status: Chronic (3) Thrombocytopenia Status: Acute (4) Acute respiratory failure Status: Acute Qualifiers: Respiratory failure complication: hypoxia Qualified Codes: J96.01 - Acute respiratory failure with hypoxia (5) Pneumonia due to COVID-19 virus Status: Acute (6) Lactic acidosis Status: Acute Clinical Quality Measures DVT/VTE Risk/Contraindication: Risk Factor Score Per Nursin RFS Level Per Nursing on Admit: 3=High Copy Copies To 1: ALY COLLIER KATELYN M MD Jul 24, 2020 08:53
[2020-07-24] MEDS ORDERED: REMDESIVIR INJ 200 MG in NS (IVPB) 210 ML IV NR (09:00)
[2020-07-24] MEDS: ENOXAPARIN 40 MG/0.4 ML (LOVENOX) SYR SC SCH ×2 (09:00→21:17)
[2020-07-24] MEDS: RT-ALBUTEROL INHALER HFA (VENTOLIN HFA) 18 GM IH PRN (10:15)
[2020-07-24] MEDS ORDERED: ONDANSETRON 4 MG/2 ML (SDV) Z0FRAN IV PRN (11:45)
[2020-07-24] MEDS ORDERED: MILK OF MAGNESIA 400 MG/5 ML 30 ML UDC PO PRN (11:45)
[2020-07-24] MEDS ORDERED: ANTACID SUSP 30 ML UDC (MYLANTA) PO PRN (11:45)
--- NOTE | 2020-07-24 15:10 | NUR ---
Pt transferred to 432 from cardiac step down. Report received from Lauryn Ibarra.
--- NOTE | 2020-07-24 16:06 | NUR ---
Dr Mercer notified of lactic acid critical level of 2.75. Down from 3.31.
[2020-07-24] MEDS: GABAPENTIN 600 MG (NEURONTIN) TAB PO SCH (21:17)
[2020-07-24] MEDS: BENZONATATE 100 MG (TESSALON) CAPSULE PO PRN (23:53)
[2020-07-25] MEDS: RT-ALBUTEROL INHALER HFA (VENTOLIN HFA) 18 GM IH PRN (06:16)
[2020-07-25] MEDS: inSUlin ASPART (NovoLOG) 1 UNIT/0.01 ML (CHARGE PER UNIT) SC SCH ×4 (06:17→20:05)
[2020-07-25] MEDS: ACETAMINOPHEN 325 MG TABLET PO PRN ×2 (06:27→20:05)
[2020-07-25 07:12] LABS: HEMOGLOBIN 10.4 g/dL (11.5-16.0); MEAN PLATELET VOLUME 10.1 fL (9.0-12.2); WHITE BLOOD COUNT 7.4 10^3/uL (4.3-11.0)
[2020-07-25 07:26] LABS: ALBUMIN 3.7 GM/DL (3.2-4.5); CHLORIDE 104 MMOL/L (98-107); POTASSIUM 3.5 MMOL/L (3.6-5.0); SODIUM 136 MMOL/L (135-145)
[2020-07-25 07:27] LABS: CALCIUM 8.5 MG/DL (8.5-10.1)
[2020-07-25 07:28] LABS: GLUCOSE 129 MG/DL (70-105); TOTAL PROTEIN 6.8 GM/DL (6.4-8.2)
[2020-07-25 07:30] LABS: BILIRUBIN,TOTAL 0.4 MG/DL (0.1-1.0); CARBON DIOXIDE 20 MMOL/L (21-32)
[2020-07-25 07:32] LABS: ALKALINE PHOSPHATASE 56 U/L (40-136); CREATININE SERUM 0.63 MG/DL (0.60-1.30); GFR ESTIMATED > 60
[2020-07-25 07:33] LABS: BUN/CREATININE RATIO 17
[2020-07-25 07:35] LABS: ALANINE AMINOTRANSFERASE 31 U/L (0-55)
[2020-07-25] MEDS: RT-ALBUTEROL INHALER HFA (VENTOLIN HFA) 18 GM IH SCH ×2 (07:40→21:29)
--- NOTE | 2020-07-25 08:46 | Progress Note - Hospitalist ---
Subjective HPI/CC On Admission Date Seen by Provider: Jul 25, 2020 Time Seen by Provider: 08:41 Pt is a 50yoCF with a PMH HTN, NIDDMII, and hypothyroidism who presented to the ER due to SOB. She states she became symptomatic with COVID on 07/16 and her daughter has it as well. She tested positive on 07/22. She was monitoring her oxygen and even at rest it was around 90 and she was short of breath prompting her to seek evaluation. Her stats where in the 80s when she showed up at the ER. She reports she has also had loss of taste and smell. She was started on steroids and azithromycin by her PCP. She denies any nausea, vomiting, or denies. She does complains of fever, myalgias, and fatigue. Subjective/Events-last exam Pt reports having a rough night. Didn't sleep well and was short of breath. Increased to 10lpm this morning. Discussed plan with patient that if her oxygen need continues to rise I will need to transfer her back up. She expressed understanding of this. Focused Exam Lactate Level 07/24/20 13:30: Lactic Acid Level 3.31*H 07/24/20 15:36: Lactic Acid Level 2.75*H 07/24/20 17:39: Lactic Acid Level 2.38*H Objective Exam Vital Signs Vital Signs Date Time Temp Pulse Resp B/P (MAP) Pulse Ox O2 Delivery O2 Flow Rate FiO2 07/25/20 08:00 36.4 102 16 127/62 (83) 91 Nasal Cannula 3.00 Capillary Refill : Less Than 3 Seconds General Appearance: No Apparent Distress, Obese Respiratory: Decreased Breath Sounds; No Rhonci, No Wheezing; Other (on 10lpm) Cardiovascular: No Murmur, Tachycardia Gastrointestinal: Normal Bowel Sounds, Non Tender, Soft Neurologic/Psychiatric: Alert, Oriented x3, Normal Mood/Affect Results/Procedures Lab Laboratory Tests 07/25/20 07:01 Patient resulted labs reviewed. Imaging: Reviewed Imaging Report Assessment/Plan Assessment and Plan Assess & Plan/Chief Complaint Acute hypoxic respiratory failure due to COVID19 Continue decadron and Remdesivir Consent to convalescent plasma done in ER, awaiting arrival still Had increase in oxygen need to 10lpm, low threshold for transfer to ICU MAT protocol Lovenox IS Blood cultures negative I called and updated her PCP to my concern about progression as well, prognosis guarded at this time due to sharp increase in oxygen need this morning Lactic acidosis Does not have sepsis Likely multifactorial from tachycardia, hypoxia, and metformin use at home Continue IVF at 100ml/hr Trended down Bicarb up from 16 to 20 today Thrombocytopenia New onset but improved today INR and D-dimer Fibrinogen normal Consider hematology consult if worsens HTN BP well controlled, trend NIDDMII On metformin at home SSI here Hold metformin for lactic acidosis Depression Resume home meds DVT ppx: Lovenox Diagnosis/Problems Diagnosis/Problems (1) Hypertension Status: Chronic Qualifiers: Hypertension type: essential hypertension Qualified Codes: I10 - Essential (primary) hypertension (2) Non-insulin dependent type 2 diabetes mellitus Status: Chronic (3) Thrombocytopenia Status: Acute (4) Acute respiratory failure Status: Acute Qualifiers: Respiratory failure complication: hypoxia Qualified Codes: J96.01 - Acute respiratory failure with hypoxia (5) Pneumonia due to COVID-19 virus Status: Acute (6) Lactic acidosis Status: Acute Clinical Quality Measures DVT/VTE Risk/Contraindication: Risk Factor Score Per Nursin RFS Level Per Nursing on Admit: 3=High PRIYANKA MANCERA MD Jul 25, 2020 08:46
[2020-07-25] MEDS ORDERED: buPROPion XL 150 MG (WELLBUTRIN XL) NON-FORM PO SCH (09:00)
[2020-07-25] MEDS: ENOXAPARIN 40 MG/0.4 ML (LOVENOX) SYR SC SCH ×2 (09:52→20:05)
[2020-07-25] MEDS: dexAMETHasone 6 MG TAB (DECADRON) PO SCH (09:53)
[2020-07-25] MEDS: REMDESIVIR INJ 100 MG in NS (IVPB) 230 ML IV SCH (09:58)
[2020-07-25] MEDS: buPROPion SR 150 MG (WELLBUTRIN SR) TAB PO SCH (10:00)
[2020-07-25] MEDS: NS IV 1000 ML 1,000 ML IV SCH ×2 (13:46→20:06)
[2020-07-25] MEDS: GABAPENTIN 600 MG (NEURONTIN) TAB PO SCH (20:04)
[2020-07-25] MEDS: MELATONIN 3 MG TABLET PO PRN (20:04)
[2020-07-26] MEDS: BENZONATATE 100 MG (TESSALON) CAPSULE PO PRN ×2 (00:33→23:02)
--- NOTE | 2020-07-26 03:32 | NUR ---
RN NOTIFIED BY OPTOMETRIC TECHNICIAN OF O2 SATS AT 83% ON 9L HIGH FLOW. O2 TURNED UP TO 15L WITH SATS AT 89-90%. PT HAS NO OTHER COMPLAINTS AND IS ALERT AND ORIENTED. RT NOTIFIED. RT DOWN TO ASSESS PT. DR. MANCERA NOTIFIED. NEW ORDERS FOR VAPOTHERM AND TRANSFER TO ICU AT THIS TIME.
--- NOTE | 2020-07-26 03:45 | NUR ---
RECEIVED FROM 4TH, 50 YEAR OLD FEMALE WITH INCREASING NEED FOR OXYGEN. CURRENTLY ON VAPOTHERM 25LITERS AND 80%, SPO2 93%. NO C/O PAIN, NO SOA NOTED
[2020-07-26 04:21] LABS: ABG BASE EXCESS -1.6 MMOL/L (-2.5-2.5); ABG OXYGEN SATURATION 94 % (94-100); ABG PCO2 31 MMHG (35-45); ABG PH 7.45 (7.37-7.43); ABG PO2 71 MMHG (79-93); ABG TCO2 22.7 MMOL/L (21.0-31.0)
[2020-07-26 04:25] LABS: ALLENS TEST POSITIVE; INSPIRED O2 25; PATIENT TEMP 36.8; VENTILATOR NO
--- NOTE | 2020-07-26 05:07 | Pulmonary Consultation ---
History of Present Illness History of Present Illness Date Seen by Provider: Jul 26, 2020 Time Seen by Provider: 05:01 Date of Admission Allergies and Home Medications Allergies Coded Allergies: codeine (Verified Adverse Reaction, Unknown, NAUSEA & VOMITING., 05/11/16) Home Medications Amlodipine Besylate 5 Mg Tablet, 5 MG PO HS, (Reported) Gabapentin 600 Mg Tablet, 600 MG PO BID, (Reported) Hydrocodone/Acetaminophen 1 Each Tablet, 1-2 TAB PO Q4H PRN for PAIN Prescribed by: BRITT RAMOS on 05/16/16 1058 Levothyroxine Sodium 50 Mcg Tablet, 50 MCG PO DAILY, (Reported) Lisinopril 40 Mg Tablet, 40 MG PO DAILY, (Reported) Medroxyprogesterone Acetate 150 Mg/1 Ml Syringe, INJ EVERY 3 MONTHS, (Reported) Nitrofurantoin Macrocrystal 100 Mg Capsule, 100 MG PO BID Prescribed by: BRITT RAMOS on 05/16/16 1058 Pantoprazole Sodium 40 Mg Tablet.dr, 40 MG PO DAILY Prescribed by: MERISSA VILLAGOMEZ on 07/05/15 1309 Potassium Citrate 15 Meq Tablet.er, 15 MEQ PO BID, (Reported) Tamsulosin HCl 0.4 Mg Cap, 0.4 MG PO DAILY Prescribed by: BRITT RAMOS on 05/16/16 1058 Past Pmgzlgx-Jefukb-Rubkzz Hx Past Med/Social Hx: Reviewed Nursing Past Med/Soc Hx Patient Social History Alcohol Use: Denies Use Recreational Drug Use: No Recent Foreign Travel: No Contact w/Someone Who Travel: No Recent Hopitalizations: No Physical Abuse: No Sexual Abuse: No Mistreated: No Fear: No Immunizations Up To Date Tetanus Booster (TDap): More than 5yrs PED Vaccines UTD: Yes Date of Pneumonia Vaccine: May 06, 2015 Date of Influenza Vaccine: May 05, 2015 Seasonal Allergies Seasonal Allergies: No Past Medical History Surgeries: Yes (rectal vag FISTULA x3, bilateral knee scopes, carpal tunnel, back sx x2, ) Section, Gallbladder, Orthopedic, Rectal Respiratory: No Pneumonia Currently Using CPAP: No Currently Using BIPAP: No Cardiac: Yes Hypertension Neurological: No : No (DEPO SHOT) Reproductive Disorders: No Sexually Transmitted Disease: No HIV/AIDS: No Kidney Stones Gastrointestinal: Yes (RECTAL-VAGINAL FISTULA REPAIR X3) Gastroesophageal Reflux Musculoskeletal: Yes Degenerate Disk Disease, Chronic Back Pain Endocrine: Yes Hypothyroidsim, Diabetes, Non-Insulin dep HEENT: No Loss of Vision: Denies Hearing Impairment: Denies Cancer: No Psychosocial: No Integumentary: No Blood Disorders: No Adverse Reaction/Blood Tranf: No (N/A) Family Medical History Reviewed Nursing Family Hx Diabetes mellitus 19 FATHER (COPD) G8 BROTHER Myocardial infarction G8 SISTER, Onset:40's - 50 No Pertinent Family Hx Sepsis Event Evaluation Height, Weight, BMI Height: 5'7.00" Weight: 256lbs. 4.0oz. 116.235584bw; 39.86 BMI Method: Exam Exam Vital Signs Date Time Temp Pulse Resp B/P (MAP) Pulse Ox O2 Delivery O2 Flow Rate FiO2 07/26/20 04:00 36.8 Vapotherm 25.00 80.00 07/26/20 00:07 36.1 68 20 121/60 (80) 92 Nasal Cannula 9.00 07/25/20 21:29 91 High Flow N/C 10.00 07/25/20 20:00 High Flow N/C 10.00 07/25/20 19:10 36.1 96 20 126/72 (90) 92 Nasal Cannula 9.00 07/25/20 16:07 36.1 93 20 132/77 (95) 92 Nasal Cannula 9.00 07/25/20 11:44 37.5 94 16 125/72 (89) 91 Nasal Cannula 3.00 07/25/20 08:00 36.4 102 16 127/62 (83) 91 Nasal Cannula 3.00 07/25/20 07:45 High Flow N/C 10.00 07/25/20 07:40 91 High Flow N/C 10.00 07/25/20 06:27 37.9 I & O 07/26/20 07:00 Intake Total 2920 ml Balance 2920 ml Height & Weight Height: 5'7.00" Weight: 256lbs. 4.0oz. 116.215841sd; 39.86 BMI Method: General Appearance: No Apparent Distress, Obese HEENT: PERRL/EOMI, Moist Mucous Membranes Neck: Normal Inspection, Supple Respiratory: Decreased Breath Sounds; No Rhonci, No Wheezing; Other (on 10lpm) Cardiovascular: No Murmur, Tachycardia Capillary Refill: Less Than 3 Seconds Extremity: Normal Capillary Refill, No Calf Tenderness, No Pedal Edema Neurologic/Psychiatric: Alert, Oriented x3, Normal Mood/Affect Skin: Normal Color, Warm/Dry Results Lab Laboratory Tests 07/25/20 07:01 Assessment/Plan Assessment/Plan Acute hypoxic respiratory failure due to COVID19 remdesivir decadron CVP -Repeat BNP, PCT, LA Wean oxygen to keep sats >90 MAT protocol Lovenox IS -Labs pending metabolic Lactic acidosis Does not have sepsis Change IVF to LR -if needed obtain PICC line Thrombocytopenia New onset INR and D-dimer monitor Labs pending for this morning HTN NIDDMII On metformin at home -Continue to hold SSI here DVT ppx: Lovenox DELMA FELICIANO DO Jul 26, 2020 05:07
[2020-07-26] MEDS: LACTATED RINGERS 1,000 ML IV SCH (06:10)
[2020-07-26] MEDS: dexAMETHasone 6 MG TAB (DECADRON) PO SCH (06:10)
--- NOTE | 2020-07-26 06:21 | Diagnostic Imaging Report ---
INDICATION: Covid positive, hypoxia. TECHNIQUE: Single view chest 5:50 AM. CORRELATION STUDY: 07/24/2020 FINDINGS: Heart size stable. Vasculature overall appears slightly increased. Patchy bilateral pulmonary infiltrates are again demonstrated. Overall appearing slightly increased. Most pronounced in the central or perihilar region but also involving the peripheral lung car[place] as well. Unchanged elevated right diaphragm. IMPRESSION: 1. Bilateral pulmonary infiltrates overall appearing increased from prior study. May be worsening pneumonia with component of underlying edema not excluded. Dictated by: Dictated on workstation # [id number]
[2020-07-26] MEDS: POTASSIUM CL 10MEQ/50ML IVPB 50 ML IV SCH (06:41)
[2020-07-26] MEDS: MAGNESIUM 1 GM/100 ML IVPB 100 ML IV SCH (06:42)
[2020-07-26] MEDS: KCL 20 MEQ TAB (K-DUR) PO SCH (06:42)
[2020-07-26] MEDS: inSUlin ASPART (NovoLOG) 1 UNIT/0.01 ML (CHARGE PER UNIT) SC SCH ×4 (06:43→20:09)
[2020-07-26] MEDS: RT-ALBUTEROL INHALER HFA (VENTOLIN HFA) 18 GM IH SCH ×2 (06:44→18:25)
[2020-07-26 06:55] LABS: ALBUMIN 3.6 GM/DL (3.2-4.5); CHLORIDE 108 MMOL/L (98-107); POTASSIUM 3.8 MMOL/L (3.6-5.0); SODIUM 139 MMOL/L (135-145)
[2020-07-26 06:56] LABS: CALCIUM 8.2 MG/DL (8.5-10.1)
[2020-07-26 06:57] LABS: GLUCOSE 132 MG/DL (70-105); TOTAL PROTEIN 6.9 GM/DL (6.4-8.2)
[2020-07-26 06:58] LABS: CARBON DIOXIDE 17 MMOL/L (21-32)
[2020-07-26 06:59] LABS: BASOPHILS % (AUTO) 0 % (0-10); BILIRUBIN,TOTAL 0.4 MG/DL (0.1-1.0); MEAN CORPUSCULAR VOLUME 84 fL (80-99)
[2020-07-26 07:01] LABS: ALKALINE PHOSPHATASE 54 U/L (40-136); CREATININE SERUM 0.59 MG/DL (0.60-1.30); EOSINOPHILS % (AUTO) 0 % (0-10); GFR ESTIMATED > 60; HEMATOCRIT 33 % (35-52); HEMOGLOBIN 10.2 g/dL (11.5-16.0); LYMPHOCYTES # (AUTO) 1.1 10^3/uL (1.0-4.0); LYMPHOCYTES % (AUTO) 19 % (12-44); MEAN CORPUSCULAR HEMOGLOBIN 26 pg (25-34); MEAN CORPUSCULAR HGB CONC 31 g/dL (32-36); MONOCYTES # (AUTO) 0.4 10^3/uL (0.0-1.0); MONOCYTES % (AUTO) 7 % (0-12); NEUTROPHILS # (AUTO) 4.4 10^3/uL (1.8-7.8); NEUTROPHILS % (AUTO) 73 % (42-75); PLATELET COUNT 80 10^3/uL (130-400)
[2020-07-26 07:02] LABS: BUN/CREATININE RATIO 17
[2020-07-26 07:04] LABS: ALANINE AMINOTRANSFERASE 28 U/L (0-55)
[2020-07-26 07:25] LABS: BAND NEUTROPHILS 6 %; NEUTROPHILS % (MANUAL) 74 %
[2020-07-26 07:26] LABS: ANISOCYTOSIS SLIGHT; ELLIPT/OVALOCYTES SLIGHT; HYPOCHROMASIA SLIGHT; LYMPHOCYTES % (MANUAL) 14 %; MONOCYTES % (MANUAL) 4 %; REACTIVE LYMPHOCYTES 2 %
[2020-07-26] MEDS: REMDESIVIR INJ 100 MG in NS (IVPB) 230 ML IV SCH (08:44)
[2020-07-26] MEDS: ENOXAPARIN 40 MG/0.4 ML (LOVENOX) SYR SC SCH ×2 (08:44→20:09)
[2020-07-26] MEDS: buPROPion SR 150 MG (WELLBUTRIN SR) TAB PO SCH (08:45)
--- NOTE | 2020-07-26 11:15 | NUR ---
This RN assisted pt to BSC at this time. Oxygen saturation decreased to 85% with ambulation. Vapotherm increased to 100% at this time. Pt recovering. Saturation now at 93%. Will continue to monitor.
[2020-07-26] MEDS ORDERED: METH4TAB10 PO (15:34)
[2020-07-26] MEDS ORDERED: BUPR150T7 PO (15:34)
[2020-07-26] MEDS ORDERED: GABA300C PO (15:34)
[2020-07-26] MEDS ORDERED: ESTR2TAB PO (15:34)
[2020-07-26] MEDS ORDERED: AZIT250T12 PO (15:34)
[2020-07-26] MEDS ORDERED: ARIP5TAB57 PO (15:34)
[2020-07-26] MEDS ORDERED: AMLO2.5T4 PO (15:34)
[2020-07-26] MEDS ORDERED: METF-399 PO (15:34)
[2020-07-26] MEDS ORDERED: ALBU18HF2 INH (15:34)
[2020-07-26] MEDS ORDERED: DAPA5TAB PO (15:34)
[2020-07-26] MEDS ORDERED: ACET-2267 PO (15:36)
--- NOTE | 2020-07-26 15:38 | NUR ---
SPOKE WITH THE PT (CALLED HER CELL) AND WENT THRU THE EXT MED HISTORY TO COMPLETE THE MED REC PT WAS HAVING A DIFFICULT TIME REMEMBERING THE NAMES OF HER MEDS, I LISTED THEM VIA THE EXT MED HISTORY. ONCE I NAMED THE MEDS PT WAS ABLE TO TELL ME HOW/WHEN SHE TAKES EACH ALL THE PTS INFORMATION SHE GAVE ME MATCHED THE EXT MED HISTORY OTC MEDS: TYLENOL
--- NOTE | 2020-07-26 17:40 | NUR ---
During care rounds, it was noted that pt's avg PO intake of 75% x2d. Note no nutrition needs at this time. Will continue to follow and reassess as pt needs, intake, and status change. Dariela Rowe, MS RD LD
[2020-07-26] MEDS: GABAPENTIN 600 MG (NEURONTIN) TAB PO SCH (20:09)
[2020-07-27] MEDS: LACTATED RINGERS 1,000 ML IV SCH (03:13)
[2020-07-27 03:25] LABS: BASOPHILS % (AUTO) 0 % (0-10); EOSINOPHILS % (AUTO) 0 % (0-10); HEMATOCRIT 33 % (35-52); HEMOGLOBIN 10.3 g/dL (11.5-16.0); LYMPHOCYTES # (AUTO) 1.4 10^3/uL (1.0-4.0); LYMPHOCYTES % (AUTO) 23 % (12-44); MEAN CORPUSCULAR HEMOGLOBIN 26 pg (25-34); MEAN CORPUSCULAR HGB CONC 31 g/dL (32-36); MEAN CORPUSCULAR VOLUME 84 fL (80-99); MEAN PLATELET VOLUME 11.1 fL (9.0-12.2); MONOCYTES # (AUTO) 0.4 10^3/uL (0.0-1.0); MONOCYTES % (AUTO) 7 % (0-12); NEUTROPHILS # (AUTO) 4.4 10^3/uL (1.8-7.8); NEUTROPHILS % (AUTO) 70 % (42-75); PLATELET COUNT 113 10^3/uL (130-400); WHITE BLOOD COUNT 6.3 10^3/uL (4.3-11.0)
[2020-07-27 03:38] LABS: CHLORIDE 107 MMOL/L (98-107); POTASSIUM 3.6 MMOL/L (3.6-5.0); SODIUM 138 MMOL/L (135-145)
[2020-07-27 03:39] LABS: CALCIUM 8.2 MG/DL (8.5-10.1)
[2020-07-27 03:40] LABS: GLUCOSE 129 MG/DL (70-105)
[2020-07-27 03:41] LABS: CARBON DIOXIDE 20 MMOL/L (21-32)
[2020-07-27 03:43] LABS: PHOSPHORUS 3.1 MG/DL (2.3-4.7)
[2020-07-27 03:44] LABS: CREATININE SERUM 0.57 MG/DL (0.60-1.30); GFR ESTIMATED > 60
[2020-07-27 03:45] LABS: BUN/CREATININE RATIO 21
[2020-07-27 03:46] LABS: MAGNESIUM 2.1 MG/DL (1.6-2.4)
[2020-07-27] MEDS: POTASSIUM CL 10MEQ/50ML IVPB 50 ML IV SCH (04:05)
[2020-07-27] MEDS: MAGNESIUM 1 GM/100 ML IVPB 100 ML IV SCH (04:05)
[2020-07-27] MEDS: KCL 20 MEQ TAB (K-DUR) PO SCH (04:05)
--- NOTE | 2020-07-27 04:33 | Pulmonary Progress Note ---
Subjective Time Seen by a Provider: 04:29 Subjective/Events-last exam Pt is requiring 85% Vapotherm. Sepsis Event Evaluation Height, Weight, BMI Height: 5'7.00" Weight: 256lbs. 4.0oz. 116.472455ib; 39.86 BMI Method: Focused Exam Lactate Level 07/24/20 15:36: Lactic Acid Level 2.75*H 07/24/20 17:39: Lactic Acid Level 2.38*H 07/26/20 05:21: Lactic Acid Level 1.17 Exam Exam Vital Signs Date Time Temp Pulse Resp B/P (MAP) Pulse Ox O2 Delivery O2 Flow Rate FiO2 07/27/20 03:00 73 30 147/91 (108) 92 Vapotherm 35.00 85.00 07/27/20 02:54 36.7 07/27/20 02:20 93 Vapotherm 25.00 85 07/27/20 02:00 68 34 123/75 (95) 93 Vapotherm 35.00 85.00 07/27/20 01:00 77 07/27/20 01:00 77 17 130/72 (91) 94 Vapotherm 35.00 85.00 07/27/20 00:00 72 36 120/70 (91) 92 Vapotherm 35.00 85.00 07/26/20 23:56 Vapotherm 35.00 85.00 07/26/20 23:00 81 31 130/78 (101) 94 Vapotherm 25.00 85.00 07/26/20 23:00 37.0 07/26/20 22:00 82 24 130/75 (96) 92 Vapotherm 25.00 85.00 07/26/20 21:00 80 131/84 (103) 93 Vapotherm 25.00 85.00 07/26/20 20:08 75 125/71 (93) 92 Vapotherm 25.00 85.00 07/26/20 20:05 36.2 Vapotherm 25.00 85.00 07/26/20 20:00 Vapotherm 25.00 85 07/26/20 19:00 88 36 91 Vapotherm 25.00 80.00 07/26/20 19:00 88 07/26/20 18:26 91 Vapotherm 25.00 85 07/26/20 18:00 73 37 Vapotherm 25.00 80.00 07/26/20 17:00 83 33 95 Vapotherm 25.00 80.00 07/26/20 16:00 74 31 123/73 (90) 92 Vapotherm 25.00 80.00 07/26/20 15:20 36.6 07/26/20 15:00 78 35 116/69 (85) 93 Vapotherm 25.00 80.00 07/26/20 14:00 104 43 127/73 (91) 82 Vapotherm 25.00 80.00 07/26/20 13:00 77 34 115/69 (84) 94 Vapotherm 25.00 80.00 07/26/20 12:29 85 07/26/20 12:00 82 9 125/78 (94) 94 Vapotherm 25.00 80.00 07/26/20 11:26 37.0 07/26/20 11:00 82 33 128/76 (93) 93 Vapotherm 25.00 80.00 07/26/20 10:00 80 32 119/72 (88) 94 Vapotherm 25.00 80.00 07/26/20 09:00 80 31 119/72 (88) 92 Vapotherm 25.00 80.00 07/26/20 08:00 Vapotherm 25.00 80 07/26/20 08:00 98 24 125/81 (96) 93 Vapotherm 25.00 80.00 07/26/20 07:20 37.1 07/26/20 07:15 79 35 133/73 (93) 92 Vapotherm 25.00 80.00 07/26/20 07:01 85 07/26/20 06:44 93 Vapotherm 25.00 80 07/26/20 06:00 81 25 93 Vapotherm 25.00 80.00 07/26/20 05:00 78 12 127/81 (96) 94 Vapotherm 25.00 80.00 I & O 07/27/20 07:00 Intake Total 1180 ml Output Total 600 ml Balance 580 ml Height & Weight Height: 5'7.00" Weight: 256lbs. 4.0oz. 116.363314cj; 39.86 BMI Method: General Appearance: No Apparent Distress, Obese HEENT: PERRL/EOMI, Moist Mucous Membranes Neck: Normal Inspection, Supple Respiratory: Decreased Breath Sounds; No Rhonci, No Wheezing; Other (on 10lpm) Cardiovascular: No Murmur, Tachycardia Capillary Refill: Less Than 3 Seconds Extremity: Normal Capillary Refill, No Calf Tenderness, No Pedal Edema Neurologic/Psychiatric: Alert, Oriented x3, Normal Mood/Affect Skin: Normal Color, Warm/Dry Results Lab Laboratory Tests 07/25/20 07:01 07/26/20 05:21 07/27/20 03:15 Assessment/Plan Assessment/Plan Acute hypoxic respiratory failure due to COVID19 remdesivir decadron CVP -Repeat BNP, PCT, LA Wean oxygen to keep sats >90 MAT protocol Lovenox IS -Labs pending metabolic Lactic acidosis Does not have sepsis Change IVF to LR -if needed obtain PICC line Thrombocytopenia New onset INR and D-dimer monitor Labs pending for this morning HTN NIDDMII On metformin at home -Continue to hold SSI here DVT ppx: Lovenox DELMA FELICIANO DO Jul 27, 2020 04:33
[2020-07-27] MEDS: inSUlin ASPART (NovoLOG) 1 UNIT/0.01 ML (CHARGE PER UNIT) SC SCH ×4 (05:13→20:16)
[2020-07-27] MEDS: dexAMETHasone 6 MG TAB (DECADRON) PO SCH (05:15)
--- NOTE | 2020-07-27 07:53 | Diagnostic Imaging Report ---
INDICATION: COVID positive. Pneumonia. Respiratory distress. EXAMINATION: Chest 07/27/2020. COMPARISON: 07/26/2020 FINDINGS: The heart is stable, pulmonary vasculature appears congested. There are scattered airspace opacities in the periphery of both lungs, left worse than right. No effusions or pneumothorax. IMPRESSION: 1. Scattered bilateral peripheral infiltrates. Dictated by: Dictated on workstation # [id number]
[2020-07-27] MEDS: REMDESIVIR INJ 100 MG in NS (IVPB) 230 ML IV SCH (09:53)
[2020-07-27] MEDS: buPROPion SR 150 MG (WELLBUTRIN SR) TAB PO SCH (09:53)
[2020-07-27] MEDS: ENOXAPARIN 40 MG/0.4 ML (LOVENOX) SYR SC SCH ×2 (09:53→20:16)
[2020-07-27] MEDS: RT-ALBUTEROL INHALER HFA (VENTOLIN HFA) 18 GM IH SCH ×2 (10:56→19:33)
[2020-07-27] MEDS ORDERED: NS IV 500 ML 500 ML ONE (13:22)
[2020-07-27 13:30] VITALS: BP 136/83
[2020-07-27 13:35] VITALS: BP 146/85
[2020-07-27 13:40] VITALS: BP 146/84
[2020-07-27 13:45] VITALS: BP 141/79
[2020-07-27] MEDS: GABAPENTIN 600 MG (NEURONTIN) TAB PO SCH (20:16)
[2020-07-28 03:38] LABS: BASOPHILS % (AUTO) 0 % (0-10); EOSINOPHILS % (AUTO) 0 % (0-10); HEMATOCRIT 33 % (35-52); HEMOGLOBIN 10.1 g/dL (11.5-16.0); LYMPHOCYTES # (AUTO) 1.1 10^3/uL (1.0-4.0); LYMPHOCYTES % (AUTO) 19 % (12-44); MEAN CORPUSCULAR HEMOGLOBIN 26 pg (25-34); MEAN CORPUSCULAR HGB CONC 31 g/dL (32-36); MEAN CORPUSCULAR VOLUME 84 fL (80-99); MEAN PLATELET VOLUME 9.9 fL (9.0-12.2); MONOCYTES # (AUTO) 0.4 10^3/uL (0.0-1.0); MONOCYTES % (AUTO) 7 % (0-12); NEUTROPHILS # (AUTO) 4.2 10^3/uL (1.8-7.8); NEUTROPHILS % (AUTO) 73 % (42-75); PLATELET COUNT 89 10^3/uL (130-400); WHITE BLOOD COUNT 5.8 10^3/uL (4.3-11.0)
[2020-07-28 03:51] LABS: CHLORIDE 108 MMOL/L (98-107); POTASSIUM 3.7 MMOL/L (3.6-5.0); SODIUM 138 MMOL/L (135-145)
[2020-07-28 03:53] LABS: CALCIUM 8.4 MG/DL (8.5-10.1); GLUCOSE 143 MG/DL (70-105)
[2020-07-28 03:55] LABS: CARBON DIOXIDE 20 MMOL/L (21-32)
[2020-07-28 03:57] LABS: CREATININE SERUM 0.63 MG/DL (0.60-1.30); GFR ESTIMATED > 60; PHOSPHORUS 3.4 MG/DL (2.3-4.7)
[2020-07-28 03:58] LABS: BUN/CREATININE RATIO 19
[2020-07-28 03:59] LABS: MAGNESIUM 2.1 MG/DL (1.6-2.4)
[2020-07-28] MEDS: POTASSIUM CL 10MEQ/50ML IVPB 50 ML IV SCH (04:02)
[2020-07-28] MEDS: MAGNESIUM 1 GM/100 ML IVPB 100 ML IV SCH (04:02)
[2020-07-28] MEDS: KCL 20 MEQ TAB (K-DUR) PO SCH (04:02)
--- NOTE | 2020-07-28 05:05 | Pulmonary Progress Note ---
Subjective Time Seen by a Provider: 05:05 Subjective/Events-last exam No complicatios noted. Sepsis Event Evaluation Height, Weight, BMI Height: 5'7.00" Weight: 256lbs. 4.0oz. 116.528103bk; 39.86 BMI Method: Focused Exam Lactate Level 07/26/20 05:21: Lactic Acid Level 1.17 Exam Exam Vital Signs Date Time Temp Pulse Resp B/P (MAP) Pulse Ox O2 Delivery O2 Flow Rate FiO2 07/28/20 03:41 36.5 80 20 152/89 (110) 96 07/28/20 01:00 75 07/27/20 23:51 36.0 91 22 146/84 (104) 95 35.00 65.00 07/27/20 22:17 95 Vapotherm 35.00 65 07/27/20 20:01 37.0 78 27 125/69 (87) 95 Vapotherm 35.00 75.00 07/27/20 20:00 Vapotherm 35.00 75 07/27/20 19:00 83 07/27/20 16:18 36.3 88 28 117/69 (85) 95 Vapotherm 35.00 75.00 07/27/20 13:45 36.7 82 18 141/79 Vapotherm 75 07/27/20 13:40 36.8 84 18 146/84 98 Vapotherm 75 07/27/20 13:35 36.6 83 18 146/85 97 Vapotherm 75 07/27/20 13:30 36.7 83 20 136/83 97 Vapotherm 75 07/27/20 11:27 36.6 07/27/20 10:54 95 Vapotherm 35.00 85 07/27/20 09:00 86 32 167/86 (113) 30 Vapotherm 35.00 85.00 07/27/20 08:00 77 32 170/103 (125) 93 Vapotherm 35.00 85.00 07/27/20 08:00 Vapotherm 35.00 85 07/27/20 07:29 36.6 07/27/20 07:00 77 35 144/75 (98) 89 Vapotherm 35.00 85.00 07/27/20 06:45 76 07/27/20 06:00 70 31 128/83 (98) 92 Vapotherm 35.00 85.00 I & O 07/28/20 07:00 Intake Total 1100 ml Output Total 200 ml Balance 900 ml Height & Weight Height: 5'7.00" Weight: 256lbs. 4.0oz. 116.047582in; 39.86 BMI Method: General Appearance: No Apparent Distress, Obese HEENT: PERRL/EOMI, Moist Mucous Membranes Neck: Normal Inspection, Supple Respiratory: Decreased Breath Sounds; No Rhonci, No Wheezing; Other (on 10lpm) Cardiovascular: No Murmur, Tachycardia Capillary Refill: Less Than 3 Seconds Extremity: Normal Capillary Refill, No Calf Tenderness, No Pedal Edema Neurologic/Psychiatric: Alert, Oriented x3, Normal Mood/Affect Skin: Normal Color, Warm/Dry Results Lab Laboratory Tests 07/26/20 05:21 07/27/20 03:15 07/28/20 03:24 Assessment/Plan Assessment/Plan Acute hypoxic respiratory failure due to COVID19 remdesivir decadron CVP -Repeat BNP, PCT, LA Wean oxygen to keep sats >90 MAT protocol Lovenox IS -Labs pending metabolic Lactic acidosis Does not have sepsis Change IVF to LR -if needed obtain PICC line Thrombocytopenia New onset INR and D-dimer monitor Labs pending for this morning HTN NIDDMII On metformin at home -Continue to hold SSI here DVT ppx: DELMA Doss DO Jul 28, 2020 05:05
[2020-07-28] MEDS: inSUlin ASPART (NovoLOG) 1 UNIT/0.01 ML (CHARGE PER UNIT) SC SCH ×4 (05:15→19:54)
[2020-07-28] MEDS: ACETAMINOPHEN 325 MG TABLET PO PRN (05:23)
[2020-07-28] MEDS: dexAMETHasone 6 MG TAB (DECADRON) PO SCH (05:23)
[2020-07-28] MEDS: RT-ALBUTEROL INHALER HFA (VENTOLIN HFA) 18 GM IH SCH ×2 (07:10→22:01)
--- NOTE | 2020-07-28 07:46 | Diagnostic Imaging Report ---
Indication: COVID with pneumonia. Respiratory distress Upright chest shows normal heart size and vascularity. There are bilateral infiltrates similar to the 07/27/2020 study. There is no effusion or pneumothorax. There is no acute bony abnormality. IMPRESSION: Stable bilateral infiltrates. Report was faxed to [facility] by anjel at 7:45am. Dictated by: Dictated on workstation # [id number]
[2020-07-28] MEDS: buPROPion SR 150 MG (WELLBUTRIN SR) TAB PO SCH (08:40)
[2020-07-28] MEDS: REMDESIVIR INJ 100 MG in NS (IVPB) 230 ML IV SCH (08:41)
[2020-07-28] MEDS: ENOXAPARIN 40 MG/0.4 ML (LOVENOX) SYR SC SCH ×2 (08:41→20:07)
--- NOTE | 2020-07-28 14:34 | NUR ---
"RD ASSESSMENT PMHx: HTN; DM; hypothyroidism; GERD; PT INTERACTION: Note pt is currently in COVID isolation per chart review. Note all diet information for nutrition assessment is per Eula WASHINGTON or per chart review. Eula states current appetite appears good. Note avg pO intake >75% x4d, per chart review. Eula states no issues with nausea, vomiting, constipation, or diarrhea that she is aware of, and that her last BM was 07/28. Note pt not currently on bowel regimen per chart review. Note unable to determine recent wt hx, per chart review. Note unable to determine current level of DM management and unable to determine recent HbA1c, per chart review. Note abnormal lab values of Cl 108 H; glu 143 H; and Ca 8.4 L, per chart review. Est. kcal needs: 3995-9781 kcal | 15-18 kcal/kg Est. Pro needs: 88-110 g Pro | 0.8-1.0 g Pro/kg PES STATEMENT: Given current PO intake, no nutrition diagnosis at this time (NO-1.1). INTERVENTION: Continue with current diet order of CHO 60g/m 3snack diet. Did not offer diet education on DM management d/t isolation precautions. Will continue to follow and reassess as pt needs, intake, and status change. Ayleen CONSTANTINO, MS RD LD [phone] cell"
[2020-07-28] MEDS: GABAPENTIN 600 MG (NEURONTIN) TAB PO SCH (20:07)
[2020-07-28] MEDS: BENZONATATE 100 MG (TESSALON) CAPSULE PO PRN (20:07)
[2020-07-28] MEDS: MELATONIN 3 MG TABLET PO PRN (20:07)
[2020-07-29 03:04] LABS: BASOPHILS % (AUTO) 0 % (0-10); EOSINOPHILS % (AUTO) 0 % (0-10); HEMATOCRIT 35 % (35-52); HEMOGLOBIN 10.4 g/dL (11.5-16.0); LYMPHOCYTES % (AUTO) 26 % (12-44); MEAN CORPUSCULAR HEMOGLOBIN 25 pg (25-34); MEAN CORPUSCULAR HGB CONC 30 g/dL (32-36); MEAN CORPUSCULAR VOLUME 85 fL (80-99); MEAN PLATELET VOLUME 10.2 fL (9.0-12.2); MONOCYTES # (AUTO) 0.5 10^3/uL (0.0-1.0); MONOCYTES % (AUTO) 6 % (0-12); NEUTROPHILS # (AUTO) 5.2 10^3/uL (1.8-7.8); NEUTROPHILS % (AUTO) 67 % (42-75); PLATELET COUNT 105 10^3/uL (130-400); WHITE BLOOD COUNT 7.8 10^3/uL (4.3-11.0)
[2020-07-29 03:12] LABS: CHLORIDE 106 MMOL/L (98-107); POTASSIUM 3.6 MMOL/L (3.6-5.0); SODIUM 138 MMOL/L (135-145)
[2020-07-29 03:13] LABS: CALCIUM 8.6 MG/DL (8.5-10.1)
[2020-07-29 03:14] LABS: GLUCOSE 117 MG/DL (70-105)
[2020-07-29 03:16] LABS: CARBON DIOXIDE 17 MMOL/L (21-32)
[2020-07-29 03:18] LABS: CREATININE SERUM 0.74 MG/DL (0.60-1.30); GFR ESTIMATED > 60; PHOSPHORUS 3.5 MG/DL (2.3-4.7)
[2020-07-29 03:19] LABS: BUN/CREATININE RATIO 22
[2020-07-29 03:20] LABS: MAGNESIUM 2.1 MG/DL (1.6-2.4)
[2020-07-29] MEDS: MAGNESIUM 1 GM/100 ML IVPB 100 ML IV SCH (03:51)
[2020-07-29] MEDS: POTASSIUM CL 10MEQ/50ML IVPB 50 ML IV SCH (03:51)
[2020-07-29] MEDS: KCL 20 MEQ TAB (K-DUR) PO SCH (03:52)
[2020-07-29] MEDS ORDERED: REMDESIVIR INJ 100 MG in NS (IVPB) 230 ML IV SCH (05:30)
[2020-07-29] MEDS ORDERED: LACTATED RINGERS 1,000 ML IV SCH (05:30)
[2020-07-29] MEDS ORDERED: NS IV 1000 ML 1,000 ML IV SCH (05:30)
--- NOTE | 2020-07-29 05:33 | Pulmonary Progress Note ---
Subjective Time Seen by a Provider: 05:30 Subjective/Events-last exam No complications noted. Sepsis Event Evaluation Height, Weight, BMI Height: 5'7.00" Weight: 256lbs. 4.0oz. 116.140954lm; 39.86 BMI Method: Exam Exam Vital Signs Date Time Temp Pulse Resp B/P (MAP) Pulse Ox O2 Delivery O2 Flow Rate FiO2 07/29/20 03:16 36.8 70 22 124/73 (90) 93 Vapotherm 30.00 45.00 07/29/20 01:06 68 07/28/20 23:09 36.4 75 20 129/75 (93) 94 Vapotherm 30.00 45.00 07/28/20 22:02 94 Vapotherm 30.00 45 07/28/20 20:10 Vapotherm 30.00 45.00 07/28/20 20:00 36.2 77 18 137/82 (100) 92 07/28/20 20:00 Vapotherm 35.00 45 07/28/20 19:05 72 07/28/20 15:36 37.1 75 19 128/73 (91) 91 Vapotherm 30.00 45.00 07/28/20 14:16 91 Vapotherm 30.00 45 07/28/20 12:53 81 07/28/20 11:44 37.0 81 22 130/73 (92) 93 Vapotherm 30.00 45.00 07/28/20 10:54 93 Vapotherm 30.00 45 07/28/20 08:21 37.0 89 24 144/78 (100) 94 Vapotherm 35.00 75.00 07/28/20 08:00 Vapotherm 35.00 75 07/28/20 07:10 96 Vapotherm 35.00 65 07/28/20 07:06 69 I & O 07/29/20 07:00 Intake Total 1425 ml Balance 1425 ml Height & Weight Height: 5'7.00" Weight: 256lbs. 4.0oz. 116.797266xl; 39.86 BMI Method: General Appearance: No Apparent Distress, Obese HEENT: PERRL/EOMI, Moist Mucous Membranes Neck: Normal Inspection, Supple Respiratory: Decreased Breath Sounds; No Rhonci, No Wheezing; Other (on 10lpm) Cardiovascular: No Murmur, Tachycardia Capillary Refill: Less Than 3 Seconds Extremity: Normal Capillary Refill, No Calf Tenderness, No Pedal Edema Neurologic/Psychiatric: Alert, Oriented x3, Normal Mood/Affect Skin: Normal Color, Warm/Dry Results Lab Laboratory Tests 07/28/20 03:24 07/29/20 02:50 Assessment/Plan Assessment/Plan Acute hypoxic respiratory failure due to COVID19 remdesivir decadron CVP Wean oxygen to keep sats >90 MAT protocol Lovenox IS -Labs pending metabolic Lactic acidosis LR - repeat -Monitor Thrombocytopenia monitor HTN NIDDMII On metformin at home -Continue to hold SSI here DVT ppx: Lovenox DELMA FELICIANO DO Jul 29, 2020 05:32
[2020-07-29] MEDS: inSUlin ASPART (NovoLOG) 1 UNIT/0.01 ML (CHARGE PER UNIT) SC SCH ×4 (05:39→21:29)
[2020-07-29] MEDS: dexAMETHasone 6 MG TAB (DECADRON) PO SCH (05:40)
[2020-07-29] MEDS ORDERED: ALPRAZolam 0.25 MG (XANAX) TAB PO PRN (05:45)
[2020-07-29 07:16] LABS: ALBUMIN 3.7 GM/DL (3.2-4.5)
[2020-07-29 07:19] LABS: TOTAL PROTEIN 7.1 GM/DL (6.4-8.2)
[2020-07-29 07:21] LABS: BILIRUBIN,TOTAL 0.4 MG/DL (0.1-1.0)
[2020-07-29 07:22] LABS: ALKALINE PHOSPHATASE 60 U/L (40-136)
[2020-07-29 07:25] LABS: ALANINE AMINOTRANSFERASE 25 U/L (0-55)
[2020-07-29] MEDS: RT-ALBUTEROL INHALER HFA (VENTOLIN HFA) 18 GM IH SCH ×3 (07:39→21:21)
[2020-07-29] MEDS ORDERED: LACTATED RINGERS 1,000 ML IV ONE (07:45)
[2020-07-29] MEDS: ENOXAPARIN 40 MG/0.4 ML (LOVENOX) SYR SC SCH ×2 (08:28→21:29)
[2020-07-29] MEDS: buPROPion SR 150 MG (WELLBUTRIN SR) TAB PO SCH (08:29)
--- NOTE | 2020-07-29 08:35 | Diagnostic Imaging Report ---
INDICATION: Covid positive, respiratory distress. TECHNIQUE: Single view chest 4:02 AM. CORRELATION STUDY: 07/28/2020 FINDINGS: Heart size and mediastinum are stable. Scattered patchy and somewhat nodular opacities throughout both lung carrington persisting. Overall appearing generally stable. IMPRESSION: 1. Bilateral pulmonary infiltrates again demonstrated, overall appearing generally stable. Some of these have a slightly nodular appearance and follow-up imaging until complete resolution is recommended. Dictated by: Dictated on workstation # [id number]
[2020-07-29] MEDS ORDERED: CATHETER FLUSH 10 ML SYR IV PRN (10:45)
[2020-07-29] MEDS: LACTATED RINGERS 1,000 ML IV SCH ×3 (11:43→23:48)
[2020-07-29 15:09] VITALS: BP 130/77
--- NOTE | 2020-07-29 18:00 | NUR ---
Patient transferred to [facility] at this time from Cardiac Step Down. Report received from Mallorie WASHINGTON. Patient alert and oriented. States she has no complaints or needs at this time. Patient informed introduced to room surroundings.
[2020-07-29] MEDS: GABAPENTIN 600 MG (NEURONTIN) TAB PO SCH (21:29)
[2020-07-30] MEDS: RT-ALBUTEROL INHALER HFA (VENTOLIN HFA) 18 GM IH SCH ×3 (01:33→10:58)
--- NOTE | 2020-07-30 04:18 | Diagnostic Imaging Report ---
Indication: Respiratory distress Portable chest 3:04 AM There are patchy groundglass infiltrates throughout both lungs. There are no effusions or pneumothoraces. IMPRESSION: Patchy groundglass infiltrates in the lungs consistent with viral pneumonia. No significant change from previous day. Dictated by: Dictated on workstation # [id number]
[2020-07-30 06:10] LABS: BASOPHILS % (AUTO) 0 % (0-10); EOSINOPHILS % (AUTO) 1 % (0-10); HEMATOCRIT 34 % (35-52); HEMOGLOBIN 10.2 g/dL (11.5-16.0); LYMPHOCYTES # (AUTO) 1.9 10^3/uL (1.0-4.0); LYMPHOCYTES % (AUTO) 26 % (12-44); MEAN CORPUSCULAR HEMOGLOBIN 25 pg (25-34); MEAN CORPUSCULAR HGB CONC 30 g/dL (32-36); MEAN CORPUSCULAR VOLUME 84 fL (80-99); MEAN PLATELET VOLUME 10.3 fL (9.0-12.2); MONOCYTES # (AUTO) 0.5 10^3/uL (0.0-1.0); MONOCYTES % (AUTO) 6 % (0-12); NEUTROPHILS % (AUTO) 66 % (42-75); PLATELET COUNT 124 10^3/uL (130-400); WHITE BLOOD COUNT 7.5 10^3/uL (4.3-11.0)
[2020-07-30 06:21] LABS: ALBUMIN 3.5 GM/DL (3.2-4.5); CHLORIDE 106 MMOL/L (98-107); POTASSIUM 3.4 MMOL/L (3.6-5.0); SODIUM 137 MMOL/L (135-145)
[2020-07-30 06:23] LABS: CALCIUM 8.3 MG/DL (8.5-10.1)
[2020-07-30 06:24] LABS: GLUCOSE 100 MG/DL (70-105); TOTAL PROTEIN 6.6 GM/DL (6.4-8.2)
[2020-07-30 06:25] LABS: CARBON DIOXIDE 19 MMOL/L (21-32)
[2020-07-30 06:26] LABS: BILIRUBIN,TOTAL 0.5 MG/DL (0.1-1.0)
[2020-07-30 06:27] LABS: ALKALINE PHOSPHATASE 53 U/L (40-136); PHOSPHORUS 3.7 MG/DL (2.3-4.7)
[2020-07-30 06:28] LABS: CREATININE SERUM 0.68 MG/DL (0.60-1.30); GFR ESTIMATED > 60
[2020-07-30 06:29] LABS: BUN/CREATININE RATIO 19
[2020-07-30 06:30] LABS: ALANINE AMINOTRANSFERASE 23 U/L (0-55)
[2020-07-30] MEDS: MAGNESIUM 1 GM/100 ML IVPB 100 ML IV SCH (06:47)
[2020-07-30] MEDS: POTASSIUM CL 10MEQ/50ML IVPB 50 ML IV SCH (06:47)
[2020-07-30] MEDS: inSUlin ASPART (NovoLOG) 1 UNIT/0.01 ML (CHARGE PER UNIT) SC SCH ×2 (06:53→12:35)
[2020-07-30] MEDS: KCL 20 MEQ TAB (K-DUR) PO SCH (06:54)
[2020-07-30] MEDS: dexAMETHasone 6 MG TAB (DECADRON) PO SCH (07:03)
[2020-07-30] MEDS ORDERED: KCL 20 MEQ TAB (K-DUR) PO ONE (08:00)
[2020-07-30] MEDS: LACTATED RINGERS 1,000 ML IV SCH (08:14)
[2020-07-30] MEDS: ENOXAPARIN 40 MG/0.4 ML (LOVENOX) SYR SC SCH (08:14)
[2020-07-30] MEDS: buPROPion SR 150 MG (WELLBUTRIN SR) TAB PO SCH (08:14)
--- NOTE | 2020-07-30 12:13 | NUR ---
CM/SS: Telephone call to pt (via cell phone [phone]) to discuss plan for discharge. Related to oxygen and home care needs. Plan: Pt will return home - awaiting the home oxygen study. Pt has declined Home Care services at this time. She is ok for oxygen DME at the same place as her spouse received earlier this week. The company is [employer] [place]. . Summary: Pt is ok to have oxygen - understanding she is awaiting the oxygen study. She is ok to use the same company as her spouse ([employer]). Pt does not feel as if she needs home care at this time, and declines this service.
--- NOTE | 2020-07-30 12:47 | NUR ---
PATIENT QUALIFIED FOR HOME O2 AT REST AND WHILE AMBULATORY @ 5L NC
--- NOTE | 2020-07-30 13:15 | Discharge Summary ---
Discharge Summary Hospital Course Was the Problem List Reviewed?: Yes Problems/Dx: (1) Pneumonia due to COVID-19 virus Status: Acute (2) Hypertension Status: Chronic Qualifiers: Qualified Codes: I10 - Essential (primary) hypertension (3) Non-insulin dependent type 2 diabetes mellitus Status: Chronic (4) Thrombocytopenia Status: Acute (5) Acute respiratory failure Status: Acute Qualifiers: Qualified Codes: J96.01 - Acute respiratory failure with hypoxia (6) Lactic acidosis Status: Resolved Hospital Course Date of Admission: Jul 24, 2020 at 02:15 Admission Diagnosis : acute respiratory failure due to COVID-19 Family Physician/Provider: Aly Collier DO Date of Discharge: 07/30/20 Discharge Diagnosis: acute respiratory failure due to COVID-19 Hospital Course: Mayte Hawkins is a 42-year-old female who was admitted with acute respiratory failure due to COVID-19. She required ICU level care. She was requiring Vapotherm but this improved throughout her hospital stay. She was treated with Decadron and Remdesivir. At the time of discharge, her oxygen requirement had improved to 5 L continuously. She was set up with home oxygen. Her course is complicated by thrombocytopenia which was improving at the time of discharge. Due to her ICU admission, she still has 6 days left of a 20 day total isolation. She should follow-up with Dr. Collier in 1-2 weeks. She was discharged home in stable condition. Labs and Pending Lab Test: Laboratory Tests 07/29/20 14:50: Lactic Acid Level 2.53*H 07/29/20 15:41: Glucometer 198H 07/29/20 17:15: Lactic Acid Level 1.91 07/29/20 20:59: Glucometer 144H 07/30/20 05:30: White Blood Count 7.5, Red Blood Count 4.04, Hemoglobin 10.2L, Hematocrit 34L, Mean Corpuscular Volume 84, Mean Corpuscular Hemoglobin 25, Mean Corpuscular Hemoglobin Concent 30L, Red Cell Distribution Width 15.6H, Platelet Count 124L, Mean Platelet Volume 10.3, Immature Granulocyte % (Auto) 2, Neutrophils (%) (Auto) 66, Lymphocytes (%) (Auto) 26, Monocytes (%) (Auto) 6, Eosinophils (%) (Auto) 1, Basophils (%) (Auto) 0, Neutrophils # (Auto) 5.0, Lymphocytes # (Auto) 1.9, Monocytes # (Auto) 0.5, Eosinophils # (Auto) 0.0, Basophils # (Auto) 0.0, Immature Granulocyte # (Auto) 0.1, Sodium Level 137, Potassium Level 3.4L, Chloride Level 106, Carbon Dioxide Level 19L, Anion Gap 12, Blood Urea Nitrogen 13, Creatinine 0.68, Estimat Glomerular Filtration Rate > 60, BUN/Creatinine Ratio 19, Glucose Level 100, Calcium Level 8.3L, Corrected Calcium 8.7, Phosphorus Level 3.7, Magnesium Level 2.0, Total Bilirubin 0.5, Aspartate Amino Transf (AST/SGOT) 27, Alanine Aminotransferase (ALT/SGPT) 23, Alkaline Phosphatase 53, Total Protein 6.6, Albumin 3.5 07/30/20 11:46: Glucometer 251H Microbiology 07/24/20 Urine Culture - Final, Complete Gram Pos Mixed Bacterial Marlyn 07/24/20 Blood Culture - Final, Complete No growth Home Meds Active Reported Tylenol Extra Strength (Acetaminophen) 500 Mg Tablet 500-1,000 Mg PO Q8H PRN Amlodipine Besylate 2.5 Mg Tablet 2.5 Mg PO HS Estradiol Tablet (Estradiol) 2 Mg Tablet 2 Mg PO DAILY Neurontin (Gabapentin) 300 Mg Capsule 600 Mg PO HS TAKES 2 (300MG) CAPS Metformin HCl 1,000 Mg Tablet 1,000 Mg PO BID Farxiga (Dapagliflozin Propanediol) 5 Mg Tablet 5 Mg PO DAILY Bupropion Xl (Bupropion HCl) 150 Mg Tab.er.24h 150 Mg PO DAILY Aripiprazole 5 Mg Tablet 5 Mg PO DAILY Ventolin Hfa (Albuterol Sulfate) 18 Gm Hfa.aer.ad 2 Puff INH Q4H PRN Methylprednisolone Dose Pack (Methylprednisolone) 4 Mg Tab.ds.pk Mg PO UD FILLED 07-21-2020 #21/6 DAY SUPPLY Azithromycin 250 Mg Tablet 250 Mg PO DAILY FILLED 07-21-2020 #12/25 DAY SUPPLY Lisinopril 40 Mg Tablet 40 Mg PO DAILY Assessment/Pt Instructions Take medications as prescribed. You're being set up with home oxygen. Follow- up with your primary care physician in a couple weeks. You will be required to isolate for 6 more days. Return with worsening shortness of breath or if you feel like you're getting worse. Discharge Planning: <30 minutes discharge planning Discharge Instructions Discharge Diet: No Restrictions Activity as Tolerated: Yes Pneumonia Vaccine Order Indica: Yes Discharge Physical Examination Vital Signs Vital Signs Date Time Temp Pulse Resp B/P (MAP) Pulse Ox O2 Delivery O2 Flow Rate FiO2 07/30/20 10:58 90 High Flow N/C 4.00 07/30/20 07:57 36.6 87 20 141/72 (95) 07/29/20 16:38 40 General Appearance: No Apparent Distress, Obese HEENT: PERRL/EOMI, Pharynx Normal Respiratory: Lungs Clear, Normal Breath Sounds, No Respiratory Distress Cardiovascular: Regular Rate, Rhythm, No Edema, No Murmur Gastrointestinal: Normal Bowel Sounds, Non Tender, Soft Extremity: Normal Inspection, Non Tender, No Pedal Edema Skin: Normal Color, Warm/Dry Neurologic/Psychiatric: Alert, Oriented x3, No Motor/Sensory Deficits, Normal Mood/Affect Allergies: Coded Allergies: codeine (Verified Adverse Reaction, Unknown, NAUSEA & VOMITING., 05/11/16) Copy Copies To 1: ALY COLLIER DO Discharge Summary Date of Admission Jul 24, 2020 at 02:15 Date of Discharge Discharge Date: Jul 30, 2020 Discharge Time: 13:09 Admission Diagnosis Acute hypoxic respiratory failure due to COVID19 Consults/Procedures Consulations Pulmonology Discharge Diagnosis acute respiratory failure due to COVID-19 (1) Hypertension Status: Chronic Qualifiers: Qualified Codes: I10 - Essential (primary) hypertension (2) Non-insulin dependent type 2 diabetes mellitus Status: Chronic (3) Thrombocytopenia Status: Acute (4) Acute respiratory failure Status: Acute Qualifiers: Qualified Codes: J96.01 - Acute respiratory failure with hypoxia (5) Pneumonia due to COVID-19 virus Status: Acute (6) Lactic acidosis Status: Resolved Clinical Quality Measures DVT/VTE Risk/Contraindication: Risk Factor Score Per Nursin RFS Level Per Nursing on Admit: 3=High JAYNA HILL MD Jul 30, 2020 13:11
--- NOTE | 2020-07-30 13:22 | NUR ---
CM/SS: Oxygen study completed - pt will qualify for oxygen. Pt is unable to use [employer] for oxygen as they do not have any oxygen at this time. This worker followed up with [facility] in [place] [phone] / fax [phone] they do have oxygen and can deliver to the hospital and get the home oxygen set up. Information is faxed - Call to pt (cell phone in room [phone]) letting her know that we were unable to use [employer] for oxygen as they are out and that we were able to use [facility] out of [place] for oxygen. She is ok with that. She is notified that [facility] may be calling her to obtain some additional information about the oxygen set up for the home. She is ok with that at this time.
--- NOTE | 2020-07-30 14:02 | NUR ---
PATIENT QUALIFIES FOR 5L WHILE AT REST AND AMBULATORY Addendum: 07/30/20 at 1403 by BALTA RAMIREZ RT Amended: Links added.
[2020-07-30 15:13] VITALS: BP 130/63
== END 2020-07-30 15:15 | disposition home or self-care (01) | DRG 177 ==
LOC: EDUNIT# 23:55 → ER 23:57 → CSD 07-24 02:15 → 4TH 07-24 14:53 → ICU 07-26 03:50 → CSD 07-27 11:53 → 4TH 07-29 17:45
PROVIDERS: ADMIT Family Medicine; ATTEND Internal Medicine
PROC: XW033E5 Introduction of Remdesivir Anti-infective into Peripheral Vein, Percutaneous Approach, New Technology Group 5 (ICD-10-PCS; principal; 2020-07-24)
PROC: XW13325 Transfusion of Convalescent Plasma (Nonautologous) into Peripheral Vein, Percutaneous Approach, New Technology Group 5 (ICD-10-PCS; 2020-07-24)
DX: U07.1 COVID-19 (principal); J12.82 Pneumonia due to coronavirus disease 2019; J96.01 Acute respiratory failure with hypoxia; E87.2 Acidosis; M19.90 Unspecified osteoarthritis, unspecified site; G89.29 Other chronic pain; M54.9 Dorsalgia, unspecified; E03.9 Hypothyroidism, unspecified; E11.9 Type 2 diabetes mellitus without complications; I10 Essential (primary) hypertension; K21.9 Gastro-esophageal reflux disease without esophagitis; D69.6 Thrombocytopenia, unspecified
CPT/HCPCS: 36415; 71045; 80048; 80053; 81000; 82805; 82962; 83605; 83735; 83880; 84100; 84145; 84703; 85007; 85025; 85027; 85379; 85384; 85610; 85730; 86141; 86900; 86901; 87040; 87088; 94640; 94664; 94760; 94761; 96360; 96361

== ENCOUNTER → 2020-08-26 | Outpatient (CLI) | payer BC ==
[~2020-08-26] MED LIST changes: +ACET-2267 PO; +ALBU18HF2 INH; +AMLO2.5T4 PO; +ARIP5TAB57 PO; +AZIT250T12 PO; +BUPR150T8 PO; +DAPA5TAB PO; +ESTR2TAB PO; +GABA300C PO; +METF-399 PO; +METH4TAB10 PO
--- NOTE | 2020-08-27 08:51 | Diagnostic Imaging Report ---
INDICATION: Routine screening. Comparison is made with prior mammogram 06/16/2019 and 06/25/2017. 2-D and 3-D bilateral screening mammography was performed with CAD. Scattered fibroglandular densities are identified bilaterally. There are benign calcifications in both breasts. No mass or malignant appearing microcalcifications are seen. Axillae are unremarkable. IMPRESSION: BI-RADS Category 2 No mammographic features suspicious for malignancy are identified. ACR BI-RADS Category 2: Benign findings. Result letter will be mailed to the patient. Note: At least 10% of breast cancer is not imaged by mammography. Dictated by: Dictated on workstation # [id number]
== END ==
LOC: RAD 15:12
PROVIDERS: ATTEND Obstetrics & Gynecology
DX: Z12.31 Encounter for screening mammogram for malignant neoplasm of breast (principal)
CPT/HCPCS: 77063; 77067

== ENCOUNTER → 2021-09-19 | Outpatient (CLI) | payer BC ==
[~2021-09-19] MED LIST changes: +BUPR150T24 PO; -BUPR150T8 PO; -ESTR2TAB PO; +ESTR2TAB3 PO; -LEVO500T80 PO; +LEVO500T81 PO; -LISI40TA PO; +LISI40TA9 PO
--- NOTE | 2021-09-20 13:09 | Diagnostic Imaging Report ---
INDICATION: Routine screening. Comparison is made with prior mammogram from 08/26/2020 and 06/16/2019. 2-D and 3-D bilateral screening mammography was performed with CAD. Both breasts are heterogeneously dense, limiting the sensitivity of mammography. A circumscribed nodule in the medial aspect of the right breast posterior depth has increased in size. No new mass or malignant-appearing microcalcifications are seen. There are scattered benign calcifications. Axillae are unremarkable. IMPRESSION: Enlarging circumscribed density in the medial right breast posterior depth. Additional views recommended for further evaluation. BI-RADS Category 0 ACR BI-RADS Category 0: Incomplete. (Needs additional imaging evaluation). Result letter will be mailed to the patient. Note: At least 10% of breast cancer is not imaged by mammography. Dictated by: Dictated on workstation # [id number]
== END ==
LOC: RAD 15:11
PROVIDERS: ATTEND Obstetrics & Gynecology
DX: Z12.31 Encounter for screening mammogram for malignant neoplasm of breast (principal)
CPT/HCPCS: 77063; 77067

== ENCOUNTER → 2021-09-22 | Outpatient (CLI) | payer BC ==
--- NOTE | 2021-09-22 15:07 | Diagnostic Imaging Report ---
INDICATION: Right breast density. Patient presents for additional views. COMPARISON: Correlation is made with the screening mammogram from 09/19/2021. TECHNIQUE: Unilateral right 2D and 3D diagnostic mammography was performed with CAD. This included spot compression CC and ML views as well as conventional 90 degree lateral view. FINDINGS: Additional views confirm the presence of a circumscribed nodule in the far medial right breast approximately 9 to 10 cm from the nipple. This has benign features and may represent a cyst. Further evaluation of this area with ultrasound is recommended. No other abnormalities are seen. IMPRESSION: Circumscribed nodule in the medial right breast approximately 9 to 10 cm from the nipple. Further evaluation with ultrasound is recommended and will be performed today. ACR BI-RADS Category 0: Incomplete. (Needs additional imaging evaluation). Result letter will be mailed to the patient. Note: At least 10% of breast cancer is not imaged by mammography. Dictated by: Dictated on workstation # [id number]
--- NOTE | 2021-09-22 15:11 | Diagnostic Imaging Report ---
INDICATION: Right breast density. COMPARISON: Correlation is made with the diagnostic mammogram from earlier this same day as well as a screening mammogram from 09/11/2021. FINDINGS: Sonographic interrogation of the medial right breast was performed. There is a simple cyst at the 3 o'clock location of the right breast 9 cm from the nipple. This is just below the skin surface. The cyst measures 4 mm x 4 mm x 5 mm. This corresponds in size and location to the mammographic density. No solid breast masses are seen. No other abnormalities are detected. IMPRESSION: Simple cyst at the 3 o'clock location 9 cm from the nipple corresponding to the mammographic density. The patient may return to routine annual screening mammography. ACR BI-RADS Category 2: Benign findings. Dictated by: Dictated on workstation # [id number]
== END ==
LOC: RAD 13:45
PROVIDERS: ATTEND Obstetrics & Gynecology
DX: N60.01 Solitary cyst of right breast (principal)
CPT/HCPCS: 76642; 77065; G0279

== ENCOUNTER → 2023-02-07 | Outpatient (CLI) | payer BC ==
[~2023-02-07] MED LIST changes: +LEVO-55 PO; -LEVO500T81 PO
--- NOTE | 2023-02-07 11:32 | Diagnostic Imaging Report ---
Indication: Routine screening. Comparison is made with prior mammogram from 09/19/2021 and 08/26/2020. 2-D and 3-D bilateral screening mammography was performed with CAD. The current study was also evaluated with a Computer Aided Detection (CAD) system. Both breasts are heterogeneously dense, limiting the sensitivity of mammography. The parenchymal pattern is stable. No dominant mass or malignant-appearing microcalcifications are identified. Previously noted tiny density medial right breast has resolved. Axillae are unremarkable. IMPRESSION: BI-RADS Category 1 No mammographic features suspicious for malignancy are identified. ACR BI-RADS Category 1: Negative. Result letter will be mailed to the patient. Note: At least 10% of breast cancer is not imaged by mammography. Dictated by: Dictated on workstation # [id number]
== END ==
LOC: RAD 07:39
PROVIDERS: ATTEND Nurse Practitioner Women's Health
DX: Z12.31 Encounter for screening mammogram for malignant neoplasm of breast (principal)
CPT/HCPCS: 77063; 77067

== ENCOUNTER 2023-03-20 05:27 | Outpatient (CLI) | payer BC ==
[~2023-03-20] VITALS: Ht 170.2 cm; Wt 118.2 kg
[2023-03-20] MEDS ORDERED: LEVO50CA4 PO (12:53)
== END 2023-03-20 13:05 | disposition home or self-care (01) ==
LOC: PREOP 05:27
PROVIDERS: ATTEND Orthopaedic Surgery
DX: Z01.818 Encounter for other preprocedural examination (principal)

== ENCOUNTER 2023-03-28 07:21 | Day surgery (SDC) | payer BC ==
--- NOTE | 2023-03-20 08:59 | HISTORY AND PHYSICAL ---
ADMISSION HISTORY AND PHYSICAL This will be for outpatient surgery on 03/28/2023 for right knee arthroscopy. HISTORY: The patient is a 53-year-old female with known chondral changes throughout her right knee. She has undergone treatment with injections as well as weight loss, but has continued pain, catching and locking. She reports tenderness along medial joint line and pain with twisting and pivoting. Due to functional impairment and failure to improve with conservative measures, the patient elected to proceed with surgical intervention. She understands that an arthroscopy can help with her mechanical symptoms, but would not alleviate her arthritic symptoms. REVIEW OF SYSTEMS: No chest pain, no shortness of breath. No dysuria. PAST MEDICAL HISTORY: Hypertension, hypothyroidism, lumbar stenosis, nephrolithiasis, urinary tract infections, diabetes type 2, anxiety. PAST SURGICAL HISTORY: Rectovaginal fistulas, left L5-S1 hemilaminectomy, right knee arthroscopy, bilateral carpal tunnels, , kidney stone removal, cholecystectomy and left ulnar nerve transposition. FAMILY HISTORY: Cardiovascular disease, diabetes, hypertension, breast cancer. MEDICATIONS: Lisinopril, levothyroxine, gabapentin, amlodipine, pantoprazole, Abilify, Januvia, progesterone, Fluoxetine, estradiol, Farxiga, bupropion, aripiprazole. ALLERGIES: CODEINE. SOCIAL HISTORY: The patient denies alcohol and tobacco use. PHYSICAL EXAMINATION: GENERAL: The patient is well-developed, well-nourished, in no acute distress. HEENT: Normocephalic, atraumatic. Pupils equal, round and reactive to light. Oropharynx is clear. NECK: Supple. No lymphadenopathy. LUNGS: Clear to auscultation bilaterally. HEART: Regular rate and rhythm. ABDOMEN: Soft, nontender, nondistended. EXTREMITIES: The right knee demonstrates tenderness along her medial joint line. She has pain medially with Uriel's. She has no varus or valgus laxity. Negative anterior and posterior drawer. Range of motion is symmetric. 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 PLAN: Right knee arthroscopy with partial medial meniscectomy, chondroplasty. The risks, benefits, options, ramifications and recovery have been discussed at length with the patient. She understands and wishes to proceed. This will be for outpatient surgery on 03/28/2023. Job ID: [id number] DocumentID: [id number] Dictated Date: 03/16/2023 12:55:31 Coil Builder Date: 03/16/2023 14:48:00 Dictated By: JUANY ABDUL MD
[2023-03-28] VITALS (10 sets, daily range): BP systolic 114–138; BP diastolic 72–86
[~2023-03-28] VITALS: Ht 170.2 cm; Wt 118.2 kg
[~2023-03-28 07:21] MED LIST changes: +LEVO50CA4 PO
[2023-03-28] MEDS ORDERED: FAMOTIDINE INJ 20MG/2ML VIAL IV ONE (07:45)
[2023-03-28] MEDS ORDERED: HYDROcodone/ACETAMINOPHEN 7.5 MG/325 MG TABLET PO PRN (07:45)
[2023-03-28] MEDS ORDERED: SCOPOLAMINE 1.5 MG PATCH TOP ONE (07:45)
[2023-03-28] MEDS ORDERED: ONDANSETRON INJECTION 4 MG/2 ML (SDV) IV ONE (07:45)
[2023-03-28] MEDS ORDERED: NS (IVPB) 50 ML 50 ML ONE (08:07)
[2023-03-28] MEDS ORDERED: ceFAZolin INJECTION 1,000 MG ONE (08:07)
[2023-03-28] MEDS ORDERED: LACTATED RINGERS 1,000 ML 1,000 ML IV PRN (08:15)
[2023-03-28] MEDS ORDERED: ceFAZolin INJECTION 1,000 MG in NS (IVPB) 50 ML 50 ML IV ONE (08:15)
--- NOTE | 2023-03-28 09:12 | Progress Note-Pre Operative ---
Pre-Operative Progress Note Date of Available H&P: Mar 20, 2023 Date H&P Reviewed: Mar 28, 2023 Time H&P Reviewed: 09:11 Changes from last HP none Pre-Operative Diagnosis: right knee medial meniscal tear and chondromalacia JUANY ABDUL MD Mar 28, 2023 09:12
--- NOTE | 2023-03-28 09:14 | Progress Note-Post Operative ---
Post-Operative Progess Note Surgeon (s)/Stripper Preliminary (s) Surgeon JUANY ABDUL MD Stripper Preliminary: Tucker Rinaldi Pre-Operative Diagnosis right knee medial meniscal tear and chondromalacia Post-Operative Diagnosis right knee medial and lateral meniscal tears and chondromalacia of the medial femoral condyle and patella Procedure & Operative Findings Date of Procedure 03/28/23 Procedure Performed/Findings right knee arthroscopic partial medial and lateral meniscectomies and chondropla sty of the medial femoral condyle and patella Anesthesia Type GETA Estimated Blood Loss Estimated blood loss (mL): minimal Specimens/Packing Specimens Removed none Packing: none JUANY ABDUL MD Mar 28, 2023 09:14
[2023-03-28] MEDS ORDERED: morphine PRESERVATIVE free 10 MG/10 ML AMP ONE (09:45)
[2023-03-28] MEDS ORDERED: BUPIVACAINE 0.25% 30 ML VIAL ONE (09:46)
[2023-03-28] MEDS ORDERED: BUPIVACAINE 0.25% 30 ML VIAL INJ ONE (09:50)
[2023-03-28] MEDS ORDERED: morphine PRESERVATIVE free 10 MG/10 ML AMP INJ ONE (09:50)
[2023-03-28] MEDS ORDERED: fentaNYL INJECTION 100 MCG/2 ML VIAL ONE (10:29)
[2023-03-28] MEDS ORDERED: proPOfol INJECTION 200 MG/20 ML VIAL IV ONE (10:29)
[2023-03-28] MEDS ORDERED: LIDOCAINE PF 2% 5 ML VIAL ONE (10:29)
[2023-03-28] MEDS ORDERED: MIDAZOLAM INJ 2 MG/2 ML VIAL ONE (10:29)
[2023-03-28] MEDS ORDERED: dexAMETHasone INJ 10 MG/ML 1 ML VIAL ONE (11:03)
[2023-03-28] MEDS ORDERED: ONDANSETRON INJECTION 4 MG/2 ML (SDV) ONE (11:03)
[2023-03-28] MEDS ORDERED: SEVOFLURANE (ULTANE) 15 ML INHAL SOLN ONE (11:40)
[2023-03-28] MEDS ORDERED: morphine INJ 10 MG/ML 1ML (SYR OR VIAL) IVP ONE (12:00)
[2023-03-28] MEDS ORDERED: ONDANSETRON INJECTION 4 MG/2 ML (SDV) IVP PRN (12:00)
[2023-03-28] MEDS ORDERED: HYDROmorphone INJECTION 2 MG/ML VIAL IV ONE (12:00)
--- NOTE | 2023-03-28 12:17 | Anesthesia-General Post-Op ---
General Patient Condition Mental Status/LOC: Same as Preop Cardiovascular: Satisfactory Nausea/Vomiting: Absent Respiratory: Satisfactory Pain: Controlled Complications: Absent Post Op Complications Complications None Follow Up Care/Instructions Patient Instructions None needed. Anesthesia/Patient Condition Patient Condition Patient is awake in PACU and doing well, no complaints, stable vital signs, no apparent adverse anesthesia problems. No complications reported per nursing. JESSICA HERRERA DO Mar 28, 2023 12:17
--- NOTE | 2023-03-28 20:03 | OPERATIVE REPORT ---
DATE OF SERVICE: 03/28/2023 PREOPERATIVE DIAGNOSES: 1. Right knee medial meniscus tear. 2. Right knee chondromalacia of the medial femoral condyle. 3. Right knee chondromalacia of the patella. POSTOPERATIVE DIAGNOSES: 1. Right knee medial meniscus tear. 2. Right knee chondromalacia of the medial femoral condyle. 3. Right knee chondromalacia of the patella. 4. Right knee lateral meniscus tear. PROCEDURES: 1. Right knee arthroscopic partial medial meniscectomy. 2. Right knee arthroscopic partial lateral meniscectomy. 3. Right knee arthroscopic chondroplasty of the medial femoral condyle. 4. Right knee arthroscopic chondroplasty of the patella. SURGEON: Yair Abdul M.D. SIGNAL MAINTAINER HELPER: KRIS Martínez, who assisted throughout the procedure and closed the incisions. ANESTHESIA: General endotracheal by Dr. Mckinley Lozano. TOURNIQUET TIME: Not applicable. ESTIMATED BLOOD LOSS: Minimal. DRAINS: None. COMPLICATIONS: None. POSTOPERATIVE PLAN: Routine arthroscopy protocol. The patient was transferred to the recovery room awake and stable condition. STATEMENT OF MEDICAL NECESSITY: The patient is a 53-year-old female with longstanding progressive right knee pain. Radiographs revealed moderate medial and patellofemoral joint space narrowing. The patient was counseled that arthroscopy could help with her mechanical symptoms as she was having catching and locking. She understood this would not alleviate her arthritic symptoms. Due to functional impairment and failure to improve with conservative measures, the patient elected to proceed with surgical intervention. Examination under anesthesia revealed range of motion of 0/2/130 with negative Irineo, negative anterior and posterior drawer. No varus or valgus laxity and a negative pivot shift. ARTHROSCOPIC FINDINGS: The patella demonstrated grade 3 chondral flap centrally in a 10 x 10 area. Trochlea demonstrated grade 2 chondral loss centrally with no unstable chondral flaps. Medial and lateral gutters were clear. The lateral compartment demonstrated a tear of the anterior horn of the lateral meniscus involving approximately one-half of the anterior horn. In addition, there was grade 4 chondral loss of the posterior aspect of the tibial plateau in an 8 x 8 area and grade 2 chondral loss over the central portion of femoral epicondyle in a 10 x 10 area. The medial compartment demonstrated a complex tear of the posterior horn of the medial meniscus involving approximately one-half of the posterior horn. In addition, there was grade 4 chondral loss of the femoral condyle and tibial plateau and adjacent 8 x 8 area with surrounding grade 3 chondral flaps at the periphery of the femoral condyle lesion. DESCRIPTION OF PROCEDURE: After risks and benefits of the procedure were discussed and questions were answered, informed consent was placed on chart, the operative site was confirmed in the preoperative holding area initialed by surgeon. The patient was then transported to the operating room. After adequate levels of general endotracheal anesthetic were obtained, timeout was called, confirming the operative site. Examination under anesthesia was performed with the above findings noted. The right lower extremity was prepped and draped in the usual sterile fashion. The knee joint was injected with 60 mL of fluid and standard inferolateral portal was placed for the arthroscope under direct visualization and inferior medial portal was created. The menisci and cruciates were carefully probed with the above findings noted. The unstable chondral flaps on the patella were debrided with a shaver back to a stable edge. Scope was redirected into the medial compartment and unstable chondral flaps on the medial femoral condyle. We debrided with a shaver back to a stable edge and the posterior horn of the medial meniscus was debrided with a shaver back to a stable edge. It was carefully probed with no further tearing or instability noted. The scope was then redirected into the lateral compartment where the lateral meniscus tear was debrided with a shaver back to a stable edge. This was carefully probed with no further tearing or instability noted. The knee was copiously irrigated. Port sites were closed with 4-0 nylon in simple interrupted fashion. Knee was injected with Duramorph. Port sites were infiltrated with plain Marcaine. A soft dressing was applied. The patient was transported to the recovery room awake and in stable condition. Job ID: [id number] DocumentID: [id number] Dictated Date: 03/28/2023 11:49:25 [employer] Grade Teacher Date: 03/28/2023 20:02:00 Dictated By: YAIR ABDUL MD
== END 2023-03-28 13:35 ==
LOC: SDC 07:21
PROVIDERS: ATTEND Orthopaedic Surgery
DX: S83.241A Other tear of medial meniscus, current injury, right knee, initial encounter (principal); S83.281A Other tear of lateral meniscus, current injury, right knee, initial encounter; M94.261 Chondromalacia, right knee
CPT/HCPCS: 82947; 84703; 87081